=== PATIENT | male | born 1965 | race Caucasian/White ===

== ENCOUNTER 2017-02-06 09:52 | Emergency (ER) | payer MEDICARE, OTHER ==
[2017-02-06 09:57] VITALS: RESP 16
--- NOTE | 2017-02-06 10:17 | ED ---
General Adult HPI - General Chief complaint: Extremity Injury, Lower Stated complaint: Fall Time Seen by Provider: 02/06/17 10:05 Source: patient, RN notes reviewed Mode of arrival: wheelchair Limitations: no limitations - History of Present Illness Initial comments: Patient is a 51-year-old male who presents emergency room today with chief complaint of increased pain to the right knee after an injury that occurred just prior to arrival. He does admit that he was standing on a chair and putting a light bulb or malaise gave out and he fell down onto the left knee. Patient denies any head injury or loss conscious. He does admit to pain locally to the left knee is worse with any flexion or extension. Denies any other complaints or symptoms at this time. - Related Data Home Medications Medication Instructions Recorded Confirmed ALPRAZolam [Xanax] 0.5 mg PO BID PRN 01/11/14 02/06/17 Divalproex ER [Depakote ER] 500 mg PO HS 01/11/14 02/06/17 FLUoxetine HCL [PROzac] 60 mg PO QAM 01/11/14 02/06/17 risperiDONE [RisperDAL] 1 mg PO QAM 01/11/14 02/06/17 risperiDONE [RisperDAL] 2 mg PO HS 01/22/15 02/06/17 lamoTRIgine [LaMICtal] 200 mg PO HS 07/08/16 02/06/17 [place] Carbonate 150 mg PO DAILY 02/06/17 02/06/17 Previous Rx's Medication Instructions Recorded Ibuprofen [Motrin] 800 mg PO Q8HR #30 tab 02/06/17 Allergies Allergy/AdvReac Type Severity Reaction Status Date / Time No Known Allergies Allergy Verified 02/06/17 10:20 Review of Systems ROS Statement: Those systems with pertinent positive or pertinent negative responses have been documented in the HPI. ROS Other: All systems not noted in ROS Statement are negative. Past Medical History Past Medical History: COPD, Diabetes Mellitus, Osteoarthritis (OA), Prostate Disorder, Skin Disorder Additional Past Medical History / Comment(s): CLOSED HEAD INJURY 1994, AUTO TRAUMA.ASPIRATION PNEUMONIA (PAST). PSORIASIS, BPH., uses a cane, Degenerative disk disease, IBS, stress related boils History of Any Multi-Drug Resistant Organisms: None Reported Past Surgical History: Joint Replacement, Orthopedic Surgery Additional Past Surgical History / Comment(s): left knee arthroscopy, 05-08-15 total lt knee arthroplasty Past Anesthesia/Blood Transfusion Reactions: Postoperative Nausea & Vomiting ( PONV) Additional Past Anesthesia/Blood Transfusion Reaction / Comment(s): SEVERE PONV , adopted-family hx unknown Past Psychological History: Anxiety, Bipolar, Depression, PTSD Smoking Status: Current every day smoker Past Alcohol Use History: None Reported Past Drug Use History: None Reported, Marijuana - Past Family History Mother Family Medical History: Unable to Obtain Additional Family Medical History / Comment(s): very limited family hx-abdopted Sister(s) Family Medical History: Cancer General Exam - General Exam Comments Initial Comments: General: The patient is awake and alert, in no distress, and does not appear acutely ill. Neck: The neck is supple, there is no tenderness or JVD. Cardiovascular: There is a regular rate and rhythm. No murmur, rub or gallop is appreciated. Respiratory: Lungs are clear to auscultation, respirations are non-labored, breath sounds are equal. No wheezes, stridor, rales, or rhonchi. Musculoskeletal: Normal appearance of the left knee no obvious deformity. Does show limited range of motion with flexion due to pain. Locally tender over the anterior aspects. Patient's intact with pulses equal bilaterally 2+. Neurological: A&O x 3. CN II-XII intact, There are no obvious motor or sensory deficits. Coordination appears grossly intact. Speech is normal. Skin: Skin is warm and dry and no rashes or lesions are noted. Psychiatric: Normal mood and affect. Limitations: no limitations Course Vital Signs 02/06/17 09:53 Temperature 97.5 F L Pulse Rate 80 Respiratory 16 Rate Blood Pressure 111/58 O2 Sat by Pulse 99 Oximetry Medical Decision Making - Medical Decision Making She was reviewed and are negative for any acute fracture dislocation. Results were discussed with the patient. Patient denies use anti-inflammatories for pain at this time. Otherwise follow-up his orthopedic doctor symptoms persist or return to emergency room for any other concerns. Disposition Clinical Impression: Knee contusion Disposition: HOME SELF-CARE Condition: Good Instructions: Contusion in Adults (ED) Additional Instructions: Please continue to ice elevate the affected area. Please use ibuprofen for pain. Please return to emergency room symptoms increase worsen. Please follow- up with orthopedic doctor if symptoms are not improving. Prescriptions: Ibuprofen [Motrin] 800 mg PO Q8HR #30 tab Referrals: Jaquan Kent DO [Primary Care Provider] - 1-2 days Erik Quispe DO [Doctor of Osteopathic Medicine] - 1-2 days Time of Disposition: 10:58
--- NOTE | 2017-02-06 10:43 | XR ---
EXAMINATION TYPE: XR knee complete LT DATE OF EXAM: 02/06/2017 COMPARISON: NONE HISTORY: Pain TECHNIQUE: Four views are submitted. FINDINGS: Joint spaces are preserved. Osseous structures are intact. No acute fracture seen. Postsurgical ramo nges are noted. Hypertrophic change of the patella. Soft tissue ossification is noted. IMPRESSION: 1. No acute fracture or dislocation.
[2017-02-06] MEDS ORDERED: KETOROLAC 60 MG/2 ML VIAL IM STA (10:53)
[2017-02-06 11:10] VITALS: BP 119/55; PULSE 75; TEMP 97.2
== END 2017-02-06 11:08 | disposition home or self-care (01) ==
LOC: EC 09:52
DX: S80.01XA Contusion of right knee, initial encounter (principal); F31.9 Bipolar disorder, unspecified; F41.9 Anxiety disorder, unspecified; F17.200 Nicotine dependence, unspecified, uncomplicated; Z79.899 Other long term (current) drug therapy; W07.XXXA Fall from chair, initial encounter; Y93.89 Activity, other specified
CPT/HCPCS: 73562; 99283; 96372; J1885

== ENCOUNTER 2019-07-08 09:42 | Emergency (ER) | payer MEDICARE, OTHER ==
[2019-07-08] MEDS ORDERED: DIAZEPAM 5 MG/ML 2 ML INJ IM STA (10:24)
[2019-07-08] MEDS ORDERED: LIDOCAINE 5% PATCH TOPICAL STA (10:24)
[2019-07-08] MEDS ORDERED: KETOROLAC 30 MG/ML 1 ML VIAL IM STA (10:24)
[2019-07-08] MEDS ORDERED: CYCLOBENZAPRINE 10MG STARTER 3 TAB BTL PO STA (11:42)
[2019-07-08] MEDS ORDERED: ACET/COD 300 MG/30 MG STARTER PACK 6 TAB BTL PO STA (11:42)
--- NOTE | 2019-07-08 11:44 | ED ---
Back Pain HPI - General Chief Complaint: Back Pain/Injury Stated Complaint: back pain Time Seen by Provider: 07/08/19 10:04 Source: patient, family Limitations: no limitations - History of Present Illness Initial Comments: Patient is a 54-year-old female with history of herniated disc is benign to emergency Department with a chief complaint of back pain. Patient reports he has been having recurrent symptoms with occasional flareups due to his herniated disc. Patient reports most recent episode has been ongoing for about 4 days and yesterday was the most severe. Patient reports the pain is located on the right paraspinal region on the right side and radiates from the [place] distally along the posterior aspect of the right thigh to the popliteal region. Patient report s the pain is alleviated with rest and exacerbated with any movement. Patient denies saddle anesthesia, urinary or bowel incontinence. Patient reports he is scheduled to see an orthopedic surgeon but has never followed through for long period of time. Patient reports he does smoke marijuana to alleviate the symptoms. - Related Data Home Medications Medication Instructions Recorded Confirmed ALPRAZolam [Xanax] 0.5 mg PO BID PRN 01/11/14 02/06/17 Divalproex ER [Depakote ER] 500 mg PO HS 01/11/14 02/06/17 FLUoxetine HCL [PROzac] 60 mg PO QAM 01/11/14 02/06/17 risperiDONE [RisperDAL] 1 mg PO QAM 01/11/14 02/06/17 risperiDONE [RisperDAL] 2 mg PO HS 01/22/15 02/06/17 lamoTRIgine [LaMICtal] 200 mg PO HS 07/08/16 02/06/17 [place] Carbonate 150 mg PO DAILY 02/06/17 02/06/17 Previous Rx's Medication Instructions Recorded Ibuprofen [Motrin] 800 mg PO Q8HR #30 tab 02/06/17 Cyclobenzaprine [Flexeril] 10 mg PO TID PRN #15 tab 07/08/19 Lidocaine [Lidoderm 5% Patch] 1 patch TRANSDERM DAILY #5 patch 07/08/19 Allergies Allergy/AdvReac Type Severity Reaction Status Date / Time No Known Allergies Allergy Verified 07/08/19 09:56 Review of Systems ROS Statement: Those systems with pertinent positive or pertinent negative responses have been documented in the HPI. ROS Other: All systems not noted in ROS Statement are negative. Past Medical History Past Medical History: COPD, Diabetes Mellitus, Osteoarthritis (OA), Prostate Disorder, Skin Disorder Additional Past Medical History / Comment(s): CLOSED HEAD INJURY 1994, AUTO TRAUMA.ASPIRATION PNEUMONIA (PAST). PSORIASIS, BPH., uses a cane, Degenerative disk disease, IBS, stress related boils History of Any Multi-Drug Resistant Organisms: None Reported Past Surgical History: Joint Replacement, Orthopedic Surgery Additional Past Surgical History / Comment(s): left knee arthroscopy, 05-08-15 total lt knee arthroplasty Past Anesthesia/Blood Transfusion Reactions: Postoperative Nausea & Vomiting (PONV) Additional Past Anesthesia/Blood Transfusion Reaction / Comment(s): SEVERE PONV, adopted-family hx unknown Past Psychological History: Anxiety, Bipolar, Depression, PTSD Smoking Status: Current every day smoker Past Alcohol Use History: None Reported Past Drug Use History: Marijuana - Past Family History Mother Family Medical History: Unable to Obtain Additional Family Medical History / Comment(s): very limited family hx-abdopted Sister(s) Family Medical History: Cancer General Exam Limitations: no limitations General appearance: alert, in no apparent distress, in distress Head exam: Present: atraumatic, normocephalic, normal inspection Eye exam: Present: normal appearance Pupils: Present: normal accommodation ENT exam: Present: normal exam, normal oropharynx, mucous membranes moist, TM's normal bilaterally, normal external ear exam Neck exam: Present: normal inspection, full ROM Respiratory exam: Present: normal lung sounds bilaterally Cardiovascular Exam: Present: regular rate, normal rhythm, normal heart sounds Extremities exam: Present: normal inspection, full ROM, normal capillary refill Back exam: Present: normal inspection, full ROM, tenderness, paraspinal tenderness (Right paraspinal tenderness in the lumbosacral region), other (Positive leg raise test right leg.). Absent: CVA tenderness (R), CVA tenderness (L), muscle spasm, vertebral tenderness, rash noted Neurological exam: Present: alert, oriented X3 Psychiatric exam: Present: normal affect, normal mood Skin exam: Present: warm, dry, intact, normal color Course Vital Signs 07/08/19 07/08/19 09:56 11:55 Temperature 97.7 F 98 F Pulse Rate 77 70 Respiratory 18 20 Rate Blood Pressure 151/104 125/77 O2 Sat by Pulse 99 97 Oximetry Medical Decision Making - Medical Decision Making Patient is a 54-year-old male with history of a herniated disc is presenting to the emergency department with a chief complaint of back pain. Physical examination is indicative of sciatica type symptoms along with mechanical low back pain. No cauda equina signs. No red flags. Patient was given a Lidoderm patch, Flexeril and Ativan. Reevaluation patient reports his symptoms have greatly improved. Patient is not able to ambulate. Patient will be discharged with Flexeril and he was advised about the possible side effects of the medication. Patient advised to follow-up with clinical application specialist. Patient also prescribed a lidoderm patch. Strict return parameters were thoroughly discussed with patient was understanding and agreeable. Case discussed physician. Disposition Clinical Impression: Lumbar radiculopathy, chronic, Sciatica, right side Disposition: HOME SELF-CARE Condition: Stable Instructions (If sedation given, give patient instructions): Acute Low Back Pain (ED) Additional Instructions: Please take prescribed medication as directed. Please follow with clinical application specialist. Please return to emergency department if symptoms worsen. Prescriptions: Cyclobenzaprine [Flexeril] 10 mg PO TID PRN #15 tab PRN Reason: Muscle Spasm Lidocaine [Lidoderm 5% Patch] 1 patch TRANSDERM DAILY #5 patch Is patient prescribed a controlled substance at d/c from ED?: No Referrals: Antolin Castro [Primary Care Provider] - 1-2 days Milton Hinton DO [Medical Doctor] - 1-2 days Time of Disposition: 11:44
[2019-07-08 12:02] VITALS: BP 125/77; PULSE 70; RESP 20; TEMP 98
== END 2019-07-08 11:57 | disposition home or self-care (01) ==
LOC: EC 09:42
DX: M54.16 Radiculopathy, lumbar region (principal); M19.90 Unspecified osteoarthritis, unspecified site; F31.9 Bipolar disorder, unspecified; F41.9 Anxiety disorder, unspecified; F17.200 Nicotine dependence, unspecified, uncomplicated; Z79.899 Other long term (current) drug therapy; Z96.652 Presence of left artificial knee joint
CPT/HCPCS: 99283; 96372 ×2; J3360; J1885

== ENCOUNTER → 2019-10-06 | Outpatient (CLI) | payer MEDICARE, OTHER ==
--- NOTE | 2019-10-07 11:11 | ECHOF ---
Referral Reason:R01.1 cardiac murmur MEASUREMENTS -------- HEIGHT: 175.3 cm WEIGHT: 85.7 kg BP: RVIDd: 2.8 cm (< 3.3) IVSd: 1.5 cm (0.6 - 1.1) LVIDd: 3.9 cm (3.9 - 5.3) LVPWd: 1.6 cm (0.6 - 1.1) IVSs: 2.0 cm LVIDs: 2.8 cm LVPWs: 2.3 cm LAESV Index (A-L): 24.02 ml/m Ao Diam: 2.1 cm (2.0 - 3.7) AV Cusp: 0.9 cm (1.5 - 2.6) MV EXCURSION: 19.027 mm (> 18.000) MV EF SLOPE: 80 mm/s (70 - 150) EPSS: 0.4 cm MV E Deo: 0.84 m/s MV DecT: 185 ms MV A Deo: 0.74 m/s MV E/A Ratio: 1.13 AV maxP.97 mmHg AV meanP.54 mmHg RAP: 5.00 mmHg RVSP: 25.91 mmHg FINDINGS -------- Sinus rhythm. This was a technically adequate study. The left ventricular size is normal. There is moderate concentric left ventricular hypertrophy. O verall left ventricular systolic function is normal with, an EF between 55 - 60 %. The diastolic fi lling pattern is normal for the age of the patient 8.97. The right ventricle is normal in size. Normal LA size by volume 22+/-6 ml/m2. The right atrial size is normal. Interatrial and interventricular septum intact. There is moderate aortic stenosis present. Peak/mean gradient across the Aortic Valve is 36.97mmHg / 23.54mmHg. AOV is possible Bicuspid. There is trace mitral regurgitation. Mild tricuspid regurgitation present. There is no evidence of pulmonary hypertension. The right v entricular systolic pressure, as measured by Doppler, is 25.91mmHg. Trace/mild (physiologic) pulmonic regurgitation. The aortic root size is normal. The inferior vena cava is mildly dilated. There is no pericardial effusion. CONCLUSIONS -------- 1. Sinus rhythm. 2. This was a technically adequate study. 3. The left ventricular size is normal. 4. There is moderate concentric left ventricular hypertrophy. 5. Overall left ventricular systolic function is normal with, an EF between 55 - 60 %. 6. The diastolic filling pattern is normal for the age of the patient 8.97 7. The right ventricle is normal in size. 8. Normal LA size by volume 22+/-6 ml/m2. 9. The right atrial size is normal. 10. Interatrial and interventricular septum intact. 11. There is moderate aortic stenosis present. 12. Peak/mean gradient across the Aortic Valve is 36.97mmHg / 23.54mmHg. 13. AOV is possible Bicuspid. 14. There is trace mitral regurgitation. 15. Mild tricuspid regurgitation present. 16. There is no evidence of pulmonary hypertension. 17. The right ventricular systolic pressure, as measured by Doppler, is 25.91mmHg. 18. Trace/mild (physiologic) pulmonic regurgitation. 19. The aortic root size is normal. 20. The inferior vena cava is mildly dilated. 21. There is no pericardial effusion. EARLY BREASTFEEDING CARE SPECIALIST: Tracy Serrato RDCS
== END | disposition home or self-care (01) ==
LOC: RADECHMAIN 11:14
PROVIDERS: ATTEND Family Medicine
DX: I07.1 Rheumatic tricuspid insufficiency (principal); I35.0 Nonrheumatic aortic (valve) stenosis; I37.1 Nonrheumatic pulmonary valve insufficiency
CPT/HCPCS: 93306

== ENCOUNTER 2019-10-20 16:07 | Emergency (ER) | payer MEDICARE ==
[2019-10-20 16:10] VITALS: TEMP 97.6
[2019-10-20 16:27] VITALS: RESP 18
--- NOTE | 2019-10-20 16:33 | ED ---
General Adult HPI - General Chief complaint: Chest Pain Stated complaint: Chest pain Time Seen by Provider: 10/20/19 16:12 Source: patient Mode of arrival: wheelchair Limitations: no limitations - History of Present Illness Initial comments: Dictation was produced using [employer] dictation software. please excuse any grammatical, word or spelling errors. Chief Complaint: 54-year-old male presents with chest pain History of Present Illness: 54-year-old male presents today with chest pain. Patient states the pain was located to his left anterior chest. He describes it as a tightness and squeezing sensation to his left chest. He stated radiated to his left shoulder. Patient denies any history of coronary artery disease. Does have history of diabetes. No associated diaphoresis or nausea. Patient denies any symptoms at this time. He states his pain lasted for only a couple minutes. States he was at rest when this occurred. The ROS documented in this emergency department record has been reviewed and confirmed by me. Those systems with pertinent positive or negative responses have been documented in the HPI. All other systems are other negative and/or noncontributory. PHYSICAL EXAM: General Impression: Alert and oriented x3, not in acute distress HEENT: Normocephalic atraumatic, extra-ocular movements intact, pupils equal and reactive to light bilaterally, mucous membranes moist. Cardiovascular: Heart regular rate and rhythm, S1&S2 audible, no murmurs, rubs or gallops Chest: Lungs clear to auscultation bilaterally, no rhonchi, no wheeze, no rales Abdomen: Bowel sounds present, abdomen soft, non-tender, non-distended, no organomegaly Musculoskeletal: Pulses present and equal in all extremities, no peripheral edema Motor: no focal deficits noted Neurological: CN II-XII grossly intact, no focal motor or sensory deficits noted Skin: Intact with no visualized rashes Psych: Normal affect and mood ED course: 54 y Old male presents with atypical chest pain with typical features. His upon arrival are within acceptable limits. Laboratory evaluation obtained. CBC, coag panel, metabolic panel is unrema rkable. Slight elevation in potassium. Chest x-ray is not acute. Denies her discussed with patient. It was recommended to him that be admitted for serial troponins. Patient does not want stay he wants to leave to attend to other matters. He lives nearby and can come back. He understands the risks of being discharged with incomplete workup. He is a could have a heart attack and expressed significant morbidity and even mortality. Patient's want to sign an AGAINST MEDICAL ADVICE. Risks, Benefits, and Treatment alternatives were discussed in detail with the patient. The patient is alert and oriented X 3 and has the capacity to make an informed decision. The risks of increased morbidity including the possibly of were explained to and understood by the patient who is choosing to leave against medical advice. The patient is encouraged to return any time should they want further treatment and diagnostic investigation. EKG interpretation: Ventricular rate 79, normal sinus rhythm, ME interval 166, QRS 96, QTC 421. No ME prolongation, no QTC prolongation, no ST or T-wave ramo nges noted. EKG compared to 07/08/2016 showing no changes. Overall, this EKG is unremarkable - Related Data Home Medications Medication Instructions Recorded Confirmed ALPRAZolam [Xanax] 0.5 mg PO BID PRN 01/11/14 02/06/17 Divalproex ER [Depakote ER] 500 mg PO HS 01/11/14 02/06/17 FLUoxetine HCL [PROzac] 60 mg PO QAM 01/11/14 02/06/17 risperiDONE [RisperDAL] 1 mg PO QAM 01/11/14 02/06/17 risperiDONE [RisperDAL] 2 mg PO HS 01/22/15 02/06/17 lamoTRIgine [LaMICtal] 200 mg PO HS 07/08/16 02/06/17 [place] Carbonate 150 mg PO DAILY 02/06/17 02/06/17 Previous Rx's Medication Instructions Recorded Ibuprofen [Motrin] 800 mg PO Q8HR #30 tab 02/06/17 Cyclobenzaprine [Flexeril] 10 mg PO TID PRN #15 tab 07/08/19 Lidocaine [Lidoderm 5% Patch] 1 patch TRANSDERM DAILY #5 patch 07/08/19 Allergies Allergy/AdvReac Type Severity Reaction Status Date / Time No Known Allergies Allergy Verified 10/20/19 16:10 Review of Systems ROS Statement: Those systems with pertinent positive or pertinent negative responses have been documented in the HPI. ROS Other: All systems not noted in ROS Statement are negative. Past Medical History Past Medical History: COPD, Diabetes Mellitus, Osteoarthritis (OA), Prostate Disorder, Skin Disorder Additional Past Medical History / Comment(s): CLOSED HEAD INJURY 1994, AUTO TRAUMA.ASPIRATION PNEUMONIA (PAST). PSORIASIS, BPH., uses a cane, Degenerative disk disease, IBS, stress related boils History of Any Multi-Drug Resistant Organisms: None Reported Past Surgical History: Joint Replacement, Orthopedic Surgery Additional Past Surgical History / Comment(s): left knee arthroscopy, 05-08-15 total lt knee arthroplasty Past Anesthesia/Blood Transfusion Reactions: Postoperative Nausea & Vomiting (P ONV) Additional Past Anesthesia/Blood Transfusion Reaction / Comment(s): SEVERE PONV, adopted-family hx unknown Past Psychological History: Anxiety, Bipolar, Depression, PTSD Smoking Status: Current every day smoker Past Alcohol Use History: None Reported Past Drug Use History: Marijuana - Past Family History Mother Family Medical History: Unable to Obtain Additional Family Medical History / Comment(s): very limited family hx-abdopted Sister(s) Family Medical History: Cancer General Exam Limitations: no limitations Course Vital Signs 10/20/19 10/20/19 10/20/19 16:07 16:27 17:19 Temperature 97.6 F Pulse Rate 85 84 91 Respiratory 16 18 18 Rate Blood Pressure 131/84 125/82 115/86 O2 Sat by Pulse 97 96 96 Oximetry Medical Decision Making - Lab Data Result diagrams: 10/20/19 16:24 10/20/19 16:24 Lab Results 10/20/19 10/20/19 10/20/19 Range/Units 16:24 16:24 16:24 WBC 8.6 (3.8-10.6) k/uL RBC 4.97 (4.30-5.90) m/uL Hgb 14.8 (13.0-17.5) gm/dL Hct 44.0 (39.0-53.0) % MCV 88.6 (80.0-100.0) fL MCH 29.7 (25.0-35.0) pg MCHC 33.6 (31.0-37.0) g/dL RDW 12.4 (11.5-15.5) % Plt Count 192 (150-450) k/uL Neutrophils % 76 % Lymphocytes % 16 % Monocytes % 3 % Eosinophils % 3 % Basophils % 0 % Neutrophils # 6.5 (1.3-7.7) k/uL Lymphocytes # 1.4 (1.0-4.8) k/uL Monocytes # 0.3 (0-1.0) k/uL Eosinophils # 0.2 (0-0.7) k/uL Basophils # 0.0 (0-0.2) k/uL PT 10.3 (9.0-12.0) sec INR 1.0 (<1.2) APTT 25.8 (22.0-30.0) sec Sodium 138 (137-145) mmol/L Potassium 5.2 H (3.5-5.1) mmol/L Chloride 104 (98-107) mmol/L Carbon Dioxide 23 (22-30) mmol/L Anion Gap 11 mmol/L BUN 16 (9-20) mg/dL Creatinine 0.76 (0.66-1.25) mg/dL Est GFR (CKD-EPI)AfAm >90 (>60 ml/min/1.73 sqM) Est GFR (CKD-EPI)NonAf >90 (>60 ml/min/1.73 sqM) Glucose 123 H (74-99) mg/dL Calcium 9.5 (8.4-10.2) mg/dL Magnesium 1.7 (1.6-2.3) mg/dL Total Bilirubin 0.4 (0.2-1.3) mg/dL AST 43 (17-59) U/L ALT 50 H (4-49) U/L Alkaline Phosphatase 65 (38-126) U/L Troponin I (0.000-0.034) ng/mL Total Protein 7.5 (6.3-8.2) g/dL Albumin 4.6 (3.5-5.0) g/dL 10/20/19 Range/Units 16:24 WBC (3.8-10.6) k/uL RBC (4.30-5.90) m/uL Hgb (13.0-17.5) gm/dL Hct (39.0-53.0) % MCV (80.0-100.0) fL MCH (25.0-35.0) pg MCHC (31.0-37.0) g/dL RDW (11.5-15.5) % Plt Count (150-450) k/uL Neutrophils % % Lymphocytes % % Monocytes % % Eosinophils % % Basophils % % Neutrophils # (1.3-7.7) k/uL Lymphocytes # (1.0-4.8) k/uL Monocytes # (0-1.0) k/uL Eosinophils # (0-0.7) k/uL Basophils # (0-0.2) k/uL PT (9.0-12.0) sec INR (<1.2) APTT (22.0-30.0) sec Sodium (137-145) mmol/L Potassium (3.5-5.1) mmol/L Chloride (98-107) mmol/L Carbon Dioxide (22-30) mmol/L Anion Gap mmol/L BUN (9-20) mg/dL Creatinine (0.66-1.25) mg/dL Est GFR (CKD-EPI)AfAm (>60 ml/min/1.73 sqM) Est GFR (CKD-EPI)NonAf (>60 ml/min/1.73 sqM) Glucose (74-99) mg/dL Calcium (8.4-10.2) mg/dL Magnesium (1.6-2.3) mg/dL Total Bilirubin (0.2-1.3) mg/dL AST (17-59) U/L ALT (4-49) U/L Alkaline Phosphatase (38-126) U/L Troponin I <0.012 (0.000-0.034) ng/mL Total Protein (6.3-8.2) g/dL Albumin (3.5-5.0) g/dL Disposition Clinical Impression: Chest pain Disposition: Left Against Medical Advice Condition: Fair Instructions (If sedation given, give patient instructions): Chest Pain (ED) Is patient prescribed a controlled substance at d/c from ED?: No Referrals: Antolin Castro [Primary Care Provider] - 1-2 days Time of Disposition: 17:27
--- NOTE | 2019-10-20 16:41 | XR ---
EXAMINATION TYPE: XR chest 2V DATE OF EXAM: 10/20/2019 COMPARISON: Chest x-ray July 08, 2016. HISTORY: Chest pain. TECHNIQUE: Frontal and lateral views of the chest are obtained. FINDINGS: Slightly diminished inspiration on current study. Overlying EKG leads are now present. Ther e is no focal air space opacity, pleural effusion, or pneumothorax seen. The cardiac silhouette size is upper limits of normal. The osseous structures are intact. IMPRESSION: Diminished inspiration without suspicious acute process.
[2019-10-20 16:42] LABS: Basophils % (A) 0 %; Eosinophils # (A) 0.2 k/uL (0-0.7); Eosinophils % (A) 3 %; HGB 14.8 gm/dL (13.0-17.5); Lymphocytes # (A) 1.4 k/uL (1.0-4.8); Lymphocytes % (A) 16 %; MCH 29.7 pg (25.0-35.0); MCHC 33.6 g/dL (31.0-37.0); MCV 88.6 fL (80.0-100.0); Mean Platelet Volume 8.7; Monocytes # (A) 0.3 k/uL (0-1.0); Monocytes % (A) 3 %; Neutrophils # (A) 6.5 k/uL (1.3-7.7); Neutrophils % (A) 76 %; Platelet Count 192 k/uL (150-450); RBC 4.97 m/uL (4.30-5.90); RDW 12.4 % (11.5-15.5); WBC 8.6 k/uL (3.8-10.6)
[2019-10-20 16:44] LABS: ALT 50 U/L (4-49); AST 43 U/L (17-59); African American GFR (CKD) >90 (>60 ml/min/1.73 sqM); Albumin 4.6 g/dL (3.5-5.0); Alkaline Phosphatase 65 U/L (38-126); Anion Gap 11 mmol/L; Blood Urea Nitrogen 16 mg/dL (9-20); Calcium 9.5 mg/dL (8.4-10.2); Carbon Dioxide 23 mmol/L (22-30); Chloride 104 mmol/L (98-107); Glucose 123 mg/dL (74-99); Magnesium 1.7 mg/dL (1.6-2.3); Non-African American GFR(CKD) >90 (>60 ml/min/1.73 sqM); Partial Thromboplastin Time 25.8 sec (22.0-30.0); Potassium 5.2 mmol/L (3.5-5.1); Prothrombin Time 10.3 sec (9.0-12.0); Sodium 138 mmol/L (137-145); Total Bilirubin 0.4 mg/dL (0.2-1.3); Total Protein 7.5 g/dL (6.3-8.2)
[2019-10-20] MEDS ORDERED: NITROGLYCERIN SL TABS 0.4 MG TAB SUBLINGUAL PRN (17:19)
[2019-10-20] MEDS ORDERED: ASPIRIN 81 MG PO STA (17:19)
[2019-10-20 17:20] VITALS: BP 115/86; PULSE 91
[2019-10-21] MEDS ORDERED: ASPIRIN 325 MG TAB PO SCH (09:00)
== END 2019-10-20 17:29 | disposition left against medical advice (07) ==
LOC: EC 16:07
DX: R07.89 Other chest pain (principal); E87.5 Hyperkalemia; E11.9 Type 2 diabetes mellitus without complications; F41.9 Anxiety disorder, unspecified; F31.9 Bipolar disorder, unspecified; M19.90 Unspecified osteoarthritis, unspecified site; F17.200 Nicotine dependence, unspecified, uncomplicated; Z79.899 Other long term (current) drug therapy; Z96.652 Presence of left artificial knee joint
CPT/HCPCS: 36415; 71046; 80053; 83735; 84484; 85025; 85610; 85730; 93005; 99285

== ENCOUNTER 2019-10-24 10:15 | Observation (INO) | payer MEDICARE ==
[2019-10-24] MEDS ORDERED: ASPIRIN 81 MG PO STA (10:49)
[2019-10-24] MEDS ORDERED: NITROGLYCERIN OINT 1 INCH/GM PACKET TOPICAL STA (10:49)
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
--- NOTE | 2019-10-24 11:04 | XR ---
EXAMINATION TYPE: XR chest 2V DATE OF EXAM: 10/24/2019 COMPARISON: 10/20/2019 HISTORY: Chest pain for 3 to 4 days. TECHNIQUE: Frontal and lateral views of the chest are obtained. FINDINGS: Interstitial prominence appears chronic. There is no focal air space opacity, pleural effus ion, or pneumothorax seen. The cardiac silhouette size is within normal limits. The osseous struct ures are intact. Mild multilevel degenerative change of the spine. IMPRESSION: Diffuse interstitial prominence does appear chronic. Chronic interstitial pulmonary lenora a versus interstitial lung disease are considerations. No focal consolidation.
[2019-10-24 11:12] LABS: ALT 50 U/L (4-49); AST 35 U/L (17-59); African American GFR (CKD) >90 (>60 ml/min/1.73 sqM); Albumin 4.5 g/dL (3.5-5.0); Alkaline Phosphatase 80 U/L (38-126); Anion Gap 13 mmol/L; Blood Urea Nitrogen 16 mg/dL (9-20); Calcium 9.9 mg/dL (8.4-10.2); Carbon Dioxide 25 mmol/L (22-30); Chloride 101 mmol/L (98-107); Glucose 179 mg/dL (74-99); Magnesium 1.6 mg/dL (1.6-2.3); Non-African American GFR(CKD) >90 (>60 ml/min/1.73 sqM); Potassium 4.5 mmol/L (3.5-5.1); Sodium 139 mmol/L (137-145); Total Bilirubin 0.2 mg/dL (0.2-1.3); Total Protein 7.2 g/dL (6.3-8.2)
[2019-10-24 11:16] LABS: Basophils % (A) 0 %; Eosinophils # (A) 0.1 k/uL (0-0.7); Eosinophils % (A) 1 %; HCT 43.4 % (39.0-53.0); HGB 14.6 gm/dL (13.0-17.5); INR 0.9 (<1.2); Lymphocytes # (A) 1.3 k/uL (1.0-4.8); Lymphocytes % (A) 16 %; MCH 29.8 pg (25.0-35.0); MCHC 33.7 g/dL (31.0-37.0); MCV 88.4 fL (80.0-100.0); Mean Platelet Volume 8.9; Monocytes # (A) 0.3 k/uL (0-1.0); Monocytes % (A) 4 %; Neutrophils # (A) 6.5 k/uL (1.3-7.7); Neutrophils % (A) 78 %; Partial Thromboplastin Time 25.3 sec (22.0-30.0); Platelet Count 164 k/uL (150-450); Prothrombin Time 9.9 sec (9.0-12.0); RBC 4.91 m/uL (4.30-5.90); RDW 12.3 % (11.5-15.5); WBC 8.3 k/uL (3.8-10.6)
[2019-10-24] MEDS ORDERED: NITROGLYCERIN SL TABS 0.4 MG TAB SUBLINGUAL PRN (12:28)
[2019-10-24] MEDS ORDERED: ALPRAZolam 0.5 MG TAB PO PRN (14:53)
[2019-10-24] MEDS ORDERED: TEMAZEPAM 15 MG CAP PO PRN (14:53)
[2019-10-24] MEDS ORDERED: IPRATROPIUM-ALBUTEROL 3 ML NEB INHALATION PRN (16:07)
[2019-10-24] MEDS ORDERED: ACETAMINOPHEN TAB 325 MG TAB PO PRN (16:08)
[2019-10-24] MEDS ORDERED: NALOXONE 0.4 MG/ML 1 ML VIAL IV PRN (16:08)
[2019-10-24] MEDS ORDERED: HYDROcodone/APAP 5-325MG 1 EACH TAB PO PRN (16:08)
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
[2019-10-24] MEDS: NICOTINE 14MG/24HR PATCH TRANSDERM SCH (16:33)
[2019-10-24 16:41] LABS: Glucose,Whole Blood 115 mg/dL (75-99)
[2019-10-24] MEDS: INSULIN ASPART (NovoLOG) 100 UNIT/ML VIAL SQ SCH ×2 (17:34→20:37)
[2019-10-24] MEDS: lamoTRIgine 100 MG TAB PO SCH ×2 (18:46→20:40)
[2019-10-24] MEDS: NITROGLYCERIN OINT 1 INCH/GM PACKET TOPICAL SCH ×2 (18:46→23:05)
[2019-10-24 20:18] LABS: Glucose,Whole Blood 147 mg/dL (75-99)
[2019-10-24] MEDS: HEPARIN SODIUM,PORCINE 5,000 UNIT/ML 1 ML VIAL SQ SCH (20:40)
[2019-10-24] MEDS ORDERED: ATORVASTATIN 20 MG TAB PO SCH (21:00)
[2019-10-25] MEDS: NITROGLYCERIN OINT 1 INCH/GM PACKET TOPICAL SCH (04:51)
[2019-10-25 06:16] LABS: Cholesterol 142 mg/dL (<200); HDL Cholesterol 34 mg/dL (40-60); LDL Cholesterol,Calculated 65 mg/dL (0-99); Triglycerides 214 mg/dL (<150)
[2019-10-25 06:40] LABS: Glucose,Whole Blood 120 mg/dL (75-99)
[2019-10-25] MEDS: INSULIN ASPART (NovoLOG) 100 UNIT/ML VIAL SQ SCH ×2 (07:30→15:26)
[2019-10-25 07:50] VITALS: RESP 18
[2019-10-25] MEDS ORDERED: LISINOPRIL 2.5 MG TAB PO SCH (09:00)
[2019-10-25] MEDS ORDERED: FLUoxetine HCL 20 MG CAP PO SCH (09:00)
[2019-10-25] MEDS ORDERED: ARIPiprazole 15 MG TAB PO SCH (09:00)
[2019-10-25] MEDS ORDERED: TAMSULOSIN 0.4 MG CAP.ER.24H PO SCH (09:00)
[2019-10-25] MEDS ORDERED: ASPIRIN 325 MG TAB PO SCH (09:00)
[2019-10-25] MEDS ORDERED: AMINOPHYLLINE 500 MG/20 ML VIAL IV PRN ×2 (09:48→10:21)
[2019-10-25] MEDS ORDERED: CAFFEINE CITRATE 60 MG/3 ML VIAL IV PRN ×2 (09:48→10:21)
[2019-10-25] MEDS ORDERED: REGADENOSON 0.4 MG/5 ML SYRINGE IV ONE (10:21)
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
[2019-10-25] MEDS ORDERED: DIPYRIDAMOLE IV ONE (10:30)
[2019-10-25] MEDS ORDERED: SODIUM CHLORIDE 0.9% IV ONE (10:30)
--- NOTE | 2019-10-25 11:00 | ECHOF ---
Referral Reason:chest pain MEASUREMENTS -------- HEIGHT: 175.3 cm WEIGHT: 90.3 kg BP: 120/86 RVIDd: 3.5 cm (< 3.3) IVSd: 1.4 cm (0.6 - 1.1) LVIDd: 4.4 cm (3.9 - 5.3) LVPWd: 1.6 cm (0.6 - 1.1) IVSs: 1.8 cm LVIDs: 2.9 cm LVPWs: 2.0 cm LAESV Index (A-L): 26.21 ml/m Ao Diam: 2.9 cm (2.0 - 3.7) AV Cusp: 1.6 cm (1.5 - 2.6) MV EXCURSION: 21.910 mm (> 18.000) MV EF SLOPE: 95 mm/s (70 - 150) EPSS: 0.2 cm MV E Deo: 0.68 m/s MV DecT: 281 ms MV A Deo: 0.57 m/s MV E/A Ratio: 1.21 AV maxP.97 mmHg AV meanP.21 mmHg RAP: 5.00 mmHg RVSP: 30.50 mmHg FINDINGS -------- Sinus rhythm. This was a technically good study. The left ventricular size is normal. There is moderate concentric left ventricular hypertrophy. O verall left ventricular systolic function is normal with, an EF between 55 - 60 %. The diastolic fi lling pattern is normal for the age of the patient 8.67. The right ventricle is mildly enlarged. Normal LA size by volume 22+/-6 ml/m2. The right atrial size is normal. Interatrial and interventricular septum intact. There is no evidence of aortic regurgitation. There is moderate aortic stenosis present. Peak/raul n gradient across the Aortic Valve is 37.97mmHg / 21.21mmHg. Mild mitral annular calcification present. Mild mitral regurgitation is present. Mild tricuspid regurgitation present. There is borderline pulmonary artery hypertension. The righ t ventricular systolic pressure, as measured by Doppler, is 30.50mmHg. There is no pulmonic regurgitation present. The aortic root size is normal. The inferior vena cava is mildly dilated. There is no pericardial effusion. CONCLUSIONS -------- 1. Sinus rhythm. 2. This was a technically good study. 3. The left ventricular size is normal. 4. There is moderate concentric left ventricular hypertrophy. 5. Overall left ventricular systolic function is normal with, an EF between 55 - 60 %. 6. The diastolic filling pattern is normal for the age of the patient 8.67 7. The right ventricle is mildly enlarged. 8. Normal LA size by volume 22+/-6 ml/m2. 9. The right atrial size is normal. 10. Interatrial and interventricular septum intact. 11. There is no evidence of aortic regurgitation. 12. There is moderate aortic stenosis present. 13. Peak/mean gradient across the Aortic Valve is 37.97mmHg / 21.21mmHg. 14. Mild mitral annular calcification present. 15. Mild mitral regurgitation is present. 16. Mild tricuspid regurgitation present. 17. There is borderline pulmonary artery hypertension. 18. The right ventricular systolic pressure, as measured by Doppler, is 30.50mmHg. 19. There is no pulmonic regurgitation present. 20. The aortic root size is normal. 21. The inferior vena cava is mildly dilated. 22. There is no pericardial effusion. [employer]ION[facility] TEST TECHNICIAN: Tracy Serrato RDCS
--- NOTE | 2019-10-25 12:30 | P.DS ---
Providers Date of admission: 10/24/19 12:29 Expected date of discharge: 10/25/19 Attending physician: Kanu Godoy MD Consults: 10/24/19 12:29 Consult Physician Urgent Consulting Provider: Guy Boo Consult Reason/Comments: cp Do you want consulting provider notified?: Yes Primary care physician: [facility] Course: 54-year-old male with the [facility] diabetes mellitus bipolar disorder presented to the ED for chest pain. Patient initially reported chest pain that started on Thursday as he was sitting down around 3 PM. Patient reported the pain to be intermittent lasting for 1 hour. Pain reoccurred on Thursday when he was outside tending to his animals. The recurrence of pain prompted the patient to go to the ED at [facility]. At that time, troponin was less than 0.012 with EKG showing normal sinus rhythm. Patient left AMA at that time. Patient reports that his chest pain reoccurred this morning. His [id number] was an RN who urged patient to go back to the ED. Patient reports the pain to be left- sided and pressure-like in sensation. Pain occasionally radiates to the left shoulder. Pain is 5/10 in severity. Patient denies any headache, lower extremity edema, nausea or vomiting, fever or chills, cough, shortness of breath, palpitations, changes in urination or bowel habits. No changes in appetite or weight. Patient denies any dizziness, numbness/weakness/tingling of the extremities. In the ED, vital signs were stable. CBC was unremarkable. Coagulation panel was negative. CMP was negative except glucose 179 and ALT 50. Troponin was also 0.012, EKG showing normal sinus rhythm. BNP was 17, chest x- ray showing diffuse interstitial prominence. Patient is admitted for chest pain, rule out acute coronary syndrome with cardiology in consultation. Troponins were trended and were less than 0.0123 with EKG showing normal sinus rhythm. Cardiology was consulted and recommended echocardiogram which showed EF 55-60% and moderate concentric LVH along with aortic stenosis. Cardiology recommended stress testing as well. Patient was seen and examined prior to his stress test. No acute events overnight. Patient denies any chest pain, shortness of breath or palpitations. No nausea or vomiting. No fever or chills. General: [non toxic], [no distress], [appears at stated age] Derm: [warm], [dry] Head: [atraumatic], [normocephalic], [symmetric] Eyes: [EOMI], [no lid lag], [anicteric sclera] Mouth: [no lip lesion], [mucus membranes moist] Cardiovascular: [S1S2 reg], [systolic murmur], [positive DP pulse bilateral], Lungs: [CTA bilateral], [no rhonchi, no rales] , [no accessory muscle use] Abdominal: [soft], [ nontender to palpation], [no guarding], [no appreciable organomegaly] Ext: [no gross muscle atrophy], [no edema], [no contractures] Neuro: [no focal neuro deficits] Psych: [Alert], [oriented], [appropriate affect] Chest pain rule out acute coronary syndrome Diabetes mellitus with hyperglycemia Aortic stenosis moderate COPD Smoker Bipolar disorder Troponins are currently less than 0.012 3 with EKG showing normal sinus rhythm. ACS has been ruled out. Echocardiogram shows EF 55-60% with moderate concentric LVH along with moderate aortic stenosis. Patient will need USAMA in the outpatient setting under cardiology. Patient will be placed on telemetry. Cardiology has been consulted and stress test has been ordered. He'll be continued on aspirin and Lipitor. Patient be started on insulin sliding scale with regular Accu-Cheks and hypoglycemic precautions. Patient will be given DuoNeb for shortness of breath and wheezing. Nicotine patch has been ordered for history of smoking. His home medication of Abilify, Prozac, Lamictal will be resumed her bipolar depression. Plans are to discharge patient home today if his stress test is normal. Pertinent Studies: Chest x-ray, echocardiogram, stress test Patient Condition at Discharge: Stable Plan - Discharge Summary Discharge Rx Participant: No New Discharge Prescriptions: No Action FLUoxetine HCL [PROzac] 20 mg PO QAM ALPRAZolam [Xanax] 0.5 mg PO BID PRN PRN Reason: Anxiety lamoTRIgine [LaMICtal] 100 mg PO QID metFORMIN HCL [Glucophage] 1,000 mg PO BID Temazepam [Restoril] 15 mg PO HS PRN PRN Reason: Insomnia Tamsulosin [Flomax] 0.4 mg PO DAILY Lisinopril [Zestril] 2.5 mg PO DAILY Atorvastatin [Lipitor] 20 mg PO HS Albuterol Inhaler [Ventolin Hfa Inhaler] 1 - 2 puff INHALATION RT-Q6H PRN PRN Reason: Shortness Of Breath ARIPiprazole [Abilify] 30 mg PO DAILY Dulaglutide [Trulicity] 1.5 mg SQ TU Aspirin EC [Ecotrin Low Dose] 81 mg PO DAILY Discharge Medication List ALPRAZolam [Xanax] 0.5 mg PO BID PRN 01/11/14 [History] FLUoxetine HCL [PROzac] 20 mg PO QAM 01/11/14 [History] lamoTRIgine [LaMICtal] 100 mg PO QID 07/08/16 [History] ARIPiprazole [Abilify] 30 mg PO DAILY 10/24/19 [History] Albuterol Inhaler [Ventolin Hfa Inhaler] 1 - 2 puff INHALATION RT-Q6H PRN 10/24/19 [History] Aspirin EC [Ecotrin Low Dose] 81 mg PO DAILY 10/24/19 [History] Atorvastatin [Lipitor] 20 mg PO HS 10/24/19 [History] Dulaglutide [Trulicity] 1.5 mg SQ TU 10/24/19 [History] Lisinopril [Zestril] 2.5 mg PO DAILY 10/24/19 [History] Tamsulosin [Flomax] 0.4 mg PO DAILY 10/24/19 [History] Temazepam [Restoril] 15 mg PO HS PRN 10/24/19 [History] metFORMIN HCL [Glucophage] 1,000 mg PO BID 10/24/19 [History] Follow up Appointment(s)/Referral(s): David Kohler MD [STAFF PHYSICIAN] - 2 Weeks Antolin Castro [Primary Care Provider] - 1-2 days
[2019-10-25] MEDS: NICOTINE 14MG/24HR PATCH TRANSDERM SCH (13:39)
[2019-10-25] MEDS: lamoTRIgine 100 MG TAB PO SCH ×2 (13:40→13:43)
[2019-10-25] MEDS: HEPARIN SODIUM,PORCINE 5,000 UNIT/ML 1 ML VIAL SQ SCH (13:40)
[2019-10-25 13:47] LABS: Glucose,Whole Blood 160 mg/dL (75-99)
--- NOTE | 2019-10-25 14:44 | NM ---
EXAMINATION TYPE: NM stress lexiscan cardiolite DATE OF EXAM: 10/25/2019 COMPARISON: NONE HISTORY: Rest pain TECHNIQUE: After the intravenous administration of 10.56 mCi Tc 99m Sestamibi - Cardiolite resting S PECT images acquired 55 minutes post injection. The patient received 0.4mg Lexiscan, 1230 mCi Tc 99m Sestamibi - Stress images obtained [address] injection FINDINGS: Review of stress and rest SPECT images demonstrates fixed defect involving the inferior wall which co uld be artifactual.. Gated analysis shows normal wall motion with an estimated left ventricular ejec tion fraction of 48 %. IMPRESSION: No scintigraphic evidence for reversible ischemia.
[2019-10-25 15:35] VITALS: BP 133/78; PULSE 80; TEMP 97.8
[2019-10-25 16:36] LABS: Glucose,Whole Blood 147 mg/dL (75-99)
--- NOTE | 2019-10-26 11:42 | EST ---
EXERCISE STRESS AGE: 54 SEX: M HT: 69" WT: 199 PROTOCOL: Lexiscan Cardiolite Stress Test HEART RATE REST: 79 BLOOD PRESSURE REST: 134/89 MAXIMUM HEART RATE ACHIEVED: 99 MAXIMUM BLOOD PRESSURE: 134/89 INDICATIONS: Chest pain, wheezing. CLINICAL INFORMATION: A Lexiscan Cardiolite study was performed. Peak heart rate of 99 was achieved. Maximum blood pressure of 134/89 mmHg was noted. Resting EKG shows normal sinus rhythm with normal MI interval and QRS duration and normal ST-T waves. No ST-segment depression suggestive of ischemia is noted. The results of the nuclear study will follow. MMODL / IJN: [id number] /
== END 2019-10-25 17:35 | disposition home or self-care (01) ==
LOC: EC 10:15 → 1SOBS 12:29
PROVIDERS: ADMIT Family Medicine; ATTEND Family Medicine
DX: R07.89 Other chest pain (principal); J44.9 Chronic obstructive pulmonary disease, unspecified; I35.8 Other nonrheumatic aortic valve disorders; I51.7 Cardiomegaly; E11.65 Type 2 diabetes mellitus with hyperglycemia; M19.90 Unspecified osteoarthritis, unspecified site; N40.0 Benign prostatic hyperplasia without lower urinary tract symptoms; K58.9 Irritable bowel syndrome, unspecified; L40.9 Psoriasis, unspecified; F17.200 Nicotine dependence, unspecified, uncomplicated; F41.9 Anxiety disorder, unspecified; F31.9 Bipolar disorder, unspecified; F43.10 Post-traumatic stress disorder, unspecified; Z96.652 Presence of left artificial knee joint; Z79.1 Long term (current) use of non-steroidal anti-inflammatories (NSAID); Z79.899 Other long term (current) drug therapy
CPT/HCPCS: 93005 ×2; 96372 ×2; 99285; 36415; 93017; 93306; 80164; 83880; 80061; 80053; 83735; 84484; 85025; 85610; 85730; 71046; 78452; G0378 ×2; A9500; S4990 ×2; J1644 ×2; J2785

== ENCOUNTER 2019-11-07 12:20 | Observation (INO) | payer MEDICARE ==
[2019-11-07] MEDS ORDERED: ASPIRIN 81 MG PO STA (12:38)
[2019-11-07] MEDS ORDERED: NITROGLYCERIN SL TABS 0.4 MG TAB SUBLINGUAL STA ×3 (12:38)
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
[2019-11-07 13:07] LABS: Basophils % (A) 0 %; Eosinophils # (A) 0.2 k/uL (0-0.7); Eosinophils % (A) 3 %; HCT 41.1 % (39.0-53.0); HGB 14.3 gm/dL (13.0-17.5); Lymphocytes # (A) 1.5 k/uL (1.0-4.8); Lymphocytes % (A) 19 %; MCH 31.1 pg (25.0-35.0); MCHC 34.9 g/dL (31.0-37.0); MCV 89.2 fL (80.0-100.0); Mean Platelet Volume 8.6; Monocytes # (A) 0.3 k/uL (0-1.0); Monocytes % (A) 3 %; Neutrophils # (A) 5.6 k/uL (1.3-7.7); Neutrophils % (A) 73 %; Platelet Count 172 k/uL (150-450); RBC 4.61 m/uL (4.30-5.90); RDW 12.5 % (11.5-15.5); WBC 7.6 k/uL (3.8-10.6)
[2019-11-07 13:15] LABS: AST 35 U/L (17-59); African American GFR (CKD) >90 (>60 ml/min/1.73 sqM); Alkaline Phosphatase 85 U/L (38-126); Anion Gap 10 mmol/L; Blood Urea Nitrogen 16 mg/dL (9-20); Calcium 8.8 mg/dL (8.4-10.2); Carbon Dioxide 22 mmol/L (22-30); Chloride 106 mmol/L (98-107); Creatine Kinase 117 U/L (55-170); Glucose 267 mg/dL (74-99); Magnesium 1.6 mg/dL (1.6-2.3); Non-African American GFR(CKD) >90 (>60 ml/min/1.73 sqM); Potassium 4.3 mmol/L (3.5-5.1); Sodium 138 mmol/L (137-145); Total Bilirubin 0.2 mg/dL (0.2-1.3); Total Protein 6.5 g/dL (6.3-8.2)
--- NOTE | 2019-11-07 13:15 | XR ---
EXAMINATION TYPE: XR chest 2V DATE OF EXAM: 11/07/2019 COMPARISON: Prior chest 10/24/2019 HISTORY: Chest pain, shortness of breath TECHNIQUE: Frontal and lateral views of the chest are obtained. FINDINGS: There is no focal air space opacity, pleural effusion, or pneumothorax seen. The cardiac silhouette size is within normal limits. There are overlying cardiac leads. The osseous structures a re intact. Question some mild prominence of the interstitium as on prior. There is bronchial wall thi ckening present. IMPRESSION: Correlate for bronchitis, follow-up as indicated. Additional findings above.
[2019-11-07 13:20] LABS: D-Dimer 0.22 mg/L FEU (<0.60); Partial Thromboplastin Time 25.9 sec (22.0-30.0); Prothrombin Time 10.3 sec (9.0-12.0)
[2019-11-07 13:23] LABS: ALT 42 U/L (4-49)
[2019-11-07] MEDS ORDERED: NITROGLYCERIN SL TABS 0.4 MG TAB SUBLINGUAL PRN (13:57)
[2019-11-07] MEDS ORDERED: NALOXONE 0.4 MG/ML 1 ML VIAL IV PRN (15:52)
[2019-11-07] MEDS ORDERED: ACETAMINOPHEN TAB 325 MG TAB PO PRN (15:52)
[2019-11-07] MEDS ORDERED: ONDANSETRON 4 MG/2 ML VIAL IVP PRN (15:52)
[2019-11-07] MEDS ORDERED: NICOTINE POLACRILEX 2 MG GUM BUCCAL PRN (15:52)
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
[2019-11-07 16:30] LABS: Glucose,Whole Blood 207 mg/dL (75-99)
[2019-11-07] MEDS: SODIUM CHLORIDE 0.9% 1,000 ML IV SCH (16:39)
[2019-11-07] MEDS: NITROGLYCERIN OINT 1 INCH/GM PACKET TOPICAL SCH ×2 (17:14→23:09)
[2019-11-07] MEDS: INSULIN ASPART (NovoLOG) 100 UNIT/ML VIAL SQ SCH ×2 (17:19→19:56)
[2019-11-07 19:45] LABS: Glucose,Whole Blood 140 mg/dL (75-99)
[2019-11-07 23:40] LABS: Hemoglobin A1C 6.5 % (4.0-6.0)
[2019-11-07 23:56] VITALS: RESP 18
[2019-11-08] MEDS: SODIUM CHLORIDE 0.9% 1,000 ML IV SCH (06:53)
[2019-11-08] MEDS: NITROGLYCERIN OINT 1 INCH/GM PACKET TOPICAL SCH ×2 (06:53→11:28)
[2019-11-08 07:24] LABS: Glucose,Whole Blood 171 mg/dL (75-99)
[2019-11-08 07:28] LABS: Cholesterol 162 mg/dL (<200); HDL Cholesterol 41 mg/dL (40-60); LDL Cholesterol,Calculated 79 mg/dL (0-99); Triglycerides 209 mg/dL (<150)
[2019-11-08 07:56] VITALS: TEMP 97.7
[2019-11-08] MEDS ORDERED: NICOTINE 14MG/24HR PATCH TRANSDERM SCH (09:00)
[2019-11-08] MEDS ORDERED: ASPIRIN 325 MG TAB PO SCH (09:00)
[2019-11-08] MEDS: INSULIN ASPART (NovoLOG) 100 UNIT/ML VIAL SQ SCH ×2 (09:15→12:17)
[2019-11-08] MEDS ORDERED: ALPRAZolam 0.5 MG TAB PO PRN (09:18)
[2019-11-08] MEDS ORDERED: ALPRAZolam 0.25 MG TAB PO PRN (09:18)
[2019-11-08] MEDS ORDERED: LIDOCAINE 1% INJ 10MG/ML (20 ML MDV) ONE (09:40)
[2019-11-08] MEDS ORDERED: IV FLUID CONTINUATION 1,000 ML IV ONE (09:41)
[2019-11-08] MEDS ORDERED: VERAPAMIL 2.5 MG/ML 2 ML AMP ONE (09:41)
[2019-11-08] MEDS ORDERED: MIDAZOLAM 2 MG/2 ML VIAL IVP ONE ×2 (10:02)
[2019-11-08] MEDS ORDERED: fentaNYL (PF) 50 MCG/ML 2 ML AMP ONE (10:09)
[2019-11-08] MEDS ORDERED: fentaNYL (PF) 50 MCG/ML 2 ML AMP IVP ONE (10:10)
[2019-11-08] MEDS ORDERED: HEPARIN SODIUM 1,000 UN/ML (10ML VL) ONE (10:10)
[2019-11-08] MEDS ORDERED: LIDOCAINE 1% INJ 10MG/ML (20 ML MDV) SQ ONE (10:10)
[2019-11-08] MEDS ORDERED: VERAPAMIL SYRINGE (5 MG/10 ML) INTRAARTER ONE (10:11)
[2019-11-08] MEDS ORDERED: HEPARIN SODIUM 1,000 UN/ML (10ML VL) IV ONE (10:13)
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
[2019-11-08] MEDS ORDERED: LISINOPRIL 2.5 MG TAB PO SCH (10:15)
[2019-11-08] MEDS ORDERED: IOPAMIDOL-370 125ML BTL INJ ONE (10:18)
[2019-11-08] MEDS ORDERED: RX INFO: IV CONTRAST WAS GIVEN 1 EACH MISC MISCELLANE PRN (10:26)
[2019-11-08] MEDS ORDERED: SODIUM CHLORIDE 0.9% 1,000 ML IV SCH (10:30)
--- NOTE | 2019-11-08 10:32 | P.PCN ---
Date of Procedure: 11/08/19 Operative Findings: CARDIAC CATHETERIZATION PERFORMING PHYSICIAN: Guy Boo MD, RPVI PROCEDURE PERFORMED: 1. Selective right and left coronary angiogram 2. Left heart catheterization INDICATION: This is a very pleasant 54-year-old gentleman with diabetes and hypertension who presented to the hospital complaining of chest discomfort and ruled out for acute coronary event. This is his second hospital admission with a chest discomfort. 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 Local anesthesia was performed using lidocaine subcutaneously. The right radial artery was cannulated using Seldinger technique, the guidewire passed easily, following that we advanced a 5-Paraguayan sheath dilator assembly, the wire and dilator were removed and sheath was flushed. Following that, 2 mg of verapamil along with 10,000 unit heparin were given. Selective right and left coronary angiogram using a 6-Paraguayan JR4 and JL 3.5 catheters. Following that we did left heart catheterization using 6-Paraguayan pigtail catheter. The procedure was completed there was no complication. SELECTIVE CORONARY ANGIOGRAM: The right coronary artery: Is a large caliber vessel and dominant vessel. Its angiographically normal. Distally bifurcates into PDA and PLV branches and both appeared to be angiographically normal Left main: Is a large caliber vessel. Its angiographically normal. Bifurcates into LCx, ramus intermedius, and left anterior descending artery The left circumflex: Is a moderate caliber vessel and nondominant vessel. Its angiographically normal. The midportion gives rise into an OM branch which seems to be angiographically normal The ramus intermedius: Is angiographically normal. Its a large caliber vessel. The left anterior descending artery: Is a large caliber vessel. Its angiographically normal. It gives rises into the first and second diagonal branches and both appeared to be angiographically normal HEMODYNAMICS: And the LVEDP was 16 mmHg. CONCLUSION: 1. Normal coronary angiogram 2. Mildly elevated LVEDP POSTPROCEDURE MANAGEMENT: 1. Medical treatment 2. Follow-up with the patient
[2019-11-08 11:39] LABS: Glucose,Whole Blood 238 mg/dL (75-99)
[2019-11-08 13:54] VITALS: BP 144/82; PULSE 75
--- NOTE | 2019-11-08 16:55 | P.DS ---
Providers Date of admission: 11/07/19 13:58 Expected date of discharge: 11/08/19 Attending physician: Martha Su, DO Consults: 11/07/19 13:58 Consult Physician Urgent Consulting Provider: Farheen Mayes Consult Reason/Comments: cp Do you want consulting provider notified?: Yes Primary care physician: Antolin Castro Hospital Course: Discharge Diagnosis: Chest pain, noncardiac Probable GERD Anxiety Moderate aortic stenosis Diabetes mellitus type 2 with hyperglycemia Tobacco abuse Hypertension, controlled Dyslipidemia COPD without exacerbation Hospital Course: Patient is a 54-year-old male with a past medical history of diabetes, hypertension, COPD, and dyslipidemia who presented to the emergency department with complaints of chest pain. Of note he had been hospitalized here on 10/23 for chest pain. At that point in time he underwent a Lexiscan stress test which showed an ejection fraction of 48% and no signs of reversible ischemia. At that point in time he also had an echocardiogram done which showed moderate aortic stenosis and cardiology recommended outpatient [facility]. He has not yet had that completed or heard of an appointment for that. On arrival to the ER this time his blood pressure was within normal limits at 111/73. Laboratory analysis was essentially unremarkable other than elevated glucose at 267. Magnesium was relatively low at 1.6. Troponin was negative. EKG is reviewed by myself revealed normal sinus rhythm at a rate of 81 with some left axis deviation, SD 172, QRS 92, QTC [address]-T wave changes. He received aspirin and nitro in the emergency department with improvement in his pain. He is placed in cardiac obs. His troponins remained normal. He was seen by cardiology. He underwent cardiac cath which showed normal coronary arteries. We will start a PPI trial. He will follow with Dr. Kohler in [address] [facility] and [address] Castro in 3-5 days for evlauation of non cardiac chest pain. Patient seen and examined at bedside. No additional chest pain, shortness of breath, or nausea, Vital signs reviewed and stable. General: non toxic, no distress, appears at stated age Derm: warm, dry Head: atraumatic, normocephalic, symmetric Eyes: EOMI, no lid lag, anicteric sclera Mouth: no lip lesion, mucus membranes moist Cardiovascular: S1S2 reg, no murmur, positive posterior tibial pulse bilateral, Lungs: CTA bilateral, no rhonchi, no rales , no accessory muscle use Abdominal: soft, nontender to palpation, no guarding, no appreciable organ omegaly Ext: no gross muscle atrophy, no edema, no contractures Neuro: CN II-XI grossly intact, no focal neuro deficits Psych: Alert, oriented, appropriate affect A total of 25 minutes of time were spent preparing this complex discharge summary . Patient Condition at Discharge: Stable Plan - Discharge Summary Discharge Rx Participant: No New Discharge Prescriptions: New Pantoprazole [Protonix] 40 mg PO DAILY #30 tablet.dr Continue ALPRAZolam [Xanax] 0.5 mg PO BID PRN PRN Reason: Anxiety lamoTRIgine [LaMICtal] 200 mg PO BID metFORMIN HCL [Glucophage] 1,000 mg PO BID Temazepam [Restoril] 15 mg PO HS PRN PRN Reason: Insomnia Tamsulosin [Flomax] 0.4 mg PO DAILY Lisinopril [Zestril] 2.5 mg PO DAILY Atorvastatin [Lipitor] 20 mg PO HS Albuterol Inhaler [Ventolin Hfa Inhaler] 1 - 2 puff INHALATION RT-Q6H PRN PRN Reason: Shortness Of Breath ARIPiprazole [Abilify] 30 mg PO DAILY Dulaglutide [Trulicity] 1.5 mg SQ MO FLUoxetine HCL [PROzac] 40 mg PO DAILY Discharge Medication List ALPRAZolam [Xanax] 0.5 mg PO BID PRN 01/11/14 [History] lamoTRIgine [LaMICtal] 200 mg PO BID 07/08/16 [History] ARIPiprazole [Abilify] 30 mg PO DAILY 10/24/19 [History] Albuterol Inhaler [Ventolin Hfa Inhaler] 1 - 2 puff INHALATION RT-Q6H PRN 10/24/19 [History] Atorvastatin [Lipitor] 20 mg PO HS 10/24/19 [History] Dulaglutide [Trulicity] 1.5 mg SQ MO 10/24/19 [History] Lisinopril [Zestril] 2.5 mg PO DAILY 10/24/19 [History] Tamsulosin [Flomax] 0.4 mg PO DAILY 10/24/19 [History] Temazepam [Restoril] 15 mg PO HS PRN 10/24/19 [History] metFORMIN HCL [Glucophage] 1,000 mg PO BID 10/24/19 [History] FLUoxetine HCL [PROzac] 40 mg PO DAILY 11/07/19 [History] Pantoprazole [Protonix] 40 mg PO DAILY #30 tablet. 11/08/19 [Rx] Follow up Appointment(s)/Referral(s): Guy Boo MD [STAFF PHYSICIAN] - 11/21/19 2:00 pm (Please bring picture ID / drivers license, list of home medications and insurance information ) Antolin Castro [Primary Care Provider] - 11/14/19 11:00 am Patient Instructions/Handouts: Chest Pain (DC) Activity/Diet/Wound Care/Special Instructions: 1) No flexing at the wrist or lifting anything over 5 pounds for 5 days 2) Remove any dressing over the puncture site in 24 hours and leave open to air 3) Do NOT submerge in water for 3 days 4) Continue to check right arm and hand for blanching, sensation, numbness, temperature and color. Discharge Disposition: HOME SELF-CARE
[2019-11-08] MEDS ORDERED: ATORVASTATIN 20 MG TAB PO SCH (21:00)
[2019-11-09] MEDS ORDERED: ASPIRIN 81 MG PO SCH (09:00)
== END 2019-11-08 15:01 | disposition home or self-care (01) ==
LOC: EC 12:20 → 1SOBS 13:58
PROVIDERS: ADMIT Internal Medicine; ATTEND Internal Medicine
DX: R07.89 Other chest pain (principal); I35.0 Nonrheumatic aortic (valve) stenosis; I10 Essential (primary) hypertension; E78.5 Hyperlipidemia, unspecified; E11.65 Type 2 diabetes mellitus with hyperglycemia; F17.200 Nicotine dependence, unspecified, uncomplicated; E78.00 Pure hypercholesterolemia, unspecified; J44.9 Chronic obstructive pulmonary disease, unspecified; L02.92 Furuncle, unspecified; N40.0 Benign prostatic hyperplasia without lower urinary tract symptoms; M51.9 Unspecified thoracic, thoracolumbar and lumbosacral intervertebral disc disorder; M17.0 Bilateral primary osteoarthritis of knee; Z79.84 Long term (current) use of oral hypoglycemic drugs; F43.10 Post-traumatic stress disorder, unspecified
CPT/HCPCS: 93005 ×2; 99285; 36415; 93458; 85379; 80061; 80053; 82550; 83735; 84484 ×2; 85025; 85610; 85730; 83036; 71046; G0378 ×2; C1769; C1894; S4990; J2250; J2001; J3010; J1644; Q9967

== ENCOUNTER 2019-12-19 19:33 | Emergency (ER) | payer MEDICARE, OTHER ==
[2019-12-19 19:55] VITALS: TEMP 97.9
[2019-12-19] MEDS ORDERED: ACET/COD 300 MG/30 MG STARTER PACK 6 TAB BTL PO STA (20:35)
[2019-12-19] MEDS ORDERED: SULFAMETH-TMP DS STARTER PACK 2 TAB BTL PO STA (20:35)
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
[2019-12-19 21:06] VITALS: BP 126/78; PULSE 85; RESP 20
== END 2019-12-19 21:05 | disposition home or self-care (01) ==
LOC: EC 19:33
DX: L02.214 Cutaneous abscess of groin (principal); R59.1 Generalized enlarged lymph nodes; E11.9 Type 2 diabetes mellitus without complications; J44.9 Chronic obstructive pulmonary disease, unspecified; N40.0 Benign prostatic hyperplasia without lower urinary tract symptoms; M17.0 Bilateral primary osteoarthritis of knee; F17.200 Nicotine dependence, unspecified, uncomplicated; Z96.652 Presence of left artificial knee joint; Z79.51 Long term (current) use of inhaled steroids; Z79.4 Long term (current) use of insulin; Z79.899 Other long term (current) drug therapy
CPT/HCPCS: 87070; 87205; 99283

== ENCOUNTER → 2020-06-11 | Outpatient (CLI) | payer MEDICARE | END | disposition home or self-care (01) | LOC: LABWHC1 11:38 | PROVIDERS: ATTEND Family Medicine | DX: Z20.828 Contact with and (suspected) exposure to other viral communicable diseases (principal) | CPT/HCPCS: U0003; C9803 ==

== ENCOUNTER 2020-07-16 18:25 | Observation (INO) | payer MEDICARE ==
[2020-07-16] MEDS ORDERED: NITROGLYCERIN OINT 1 INCH/GM PACKET TOPICAL STA (18:51)
[2020-07-16] MEDS ORDERED: ASPIRIN 81 MG PO STA (18:51)
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
[2020-07-16 19:12] LABS: Basophils % (A) 1 %; Eosinophils # (A) 0.1 k/uL (0-0.7); Eosinophils % (A) 2 %; HCT 46.9 % (39.0-53.0); HGB 15.4 gm/dL (13.0-17.5); Lymphocytes # (A) 1.4 k/uL (1.0-4.8); Lymphocytes % (A) 20 %; MCH 29.5 pg (25.0-35.0); MCHC 32.9 g/dL (31.0-37.0); MCV 89.9 fL (80.0-100.0); Mean Platelet Volume 8.6; Monocytes # (A) 0.3 k/uL (0-1.0); Monocytes % (A) 5 %; Neutrophils % (A) 71 %; Platelet Count 153 k/uL (150-450); RBC 5.22 m/uL (4.30-5.90); RDW 12.8 % (11.5-15.5)
--- NOTE | 2020-07-16 19:18 | XR ---
EXAMINATION TYPE: XR chest 2V DATE OF EXAM: 07/16/2020 COMPARISON: 11/07/2019 HISTORY: Weakness TECHNIQUE: FINDINGS: Heart is normal. Lungs are clear of consolidation. There is no definite pleural effusion. T here are no hilar masses. There is some coarsening of interstitial markings. IMPRESSION: Mild pulmonary interstitial infiltrates improved compared to old exam. No obvious heart f ailure.
[2020-07-16 19:23] LABS: ALT 191 U/L (4-49); AST 95 U/L (17-59); African American GFR (CKD) >90 (>60 ml/min/1.73 sqM); Albumin 4.3 g/dL (3.5-5.0); Alkaline Phosphatase 93 U/L (38-126); Anion Gap 9 mmol/L; Blood Urea Nitrogen 15 mg/dL (9-20); Calcium 9.4 mg/dL (8.4-10.2); Carbon Dioxide 23 mmol/L (22-30); Chloride 104 mmol/L (98-107); Glucose 178 mg/dL (74-99); Magnesium 1.9 mg/dL (1.6-2.3); Non-African American GFR(CKD) 90 (>60 ml/min/1.73 sqM); Partial Thromboplastin Time 25.6 sec (22.0-30.0); Potassium 4.4 mmol/L (3.5-5.1); Prothrombin Time 10.2 sec (9.0-12.0); Sodium 136 mmol/L (137-145); Total Bilirubin 0.4 mg/dL (0.2-1.3); Total Protein 7.2 g/dL (6.3-8.2)
[2020-07-16] MEDS ORDERED: HEPARIN SODIUM,PORCINE 5,000 UNIT/ML 1 ML VIAL IV ONE (19:54)
[2020-07-16] MEDS ORDERED: NITROGLYCERIN SL TABS 0.4 MG TAB SUBLINGUAL PRN (20:00)
[2020-07-16] MEDS ORDERED: HEPARIN SOD,PORK IN 0.45% NACL 25,000 UNIT in 0.45% NACL 1 250ML.BAG IV SCH (20:00)
[2020-07-16] MEDS ORDERED: TEMAZEPAM 15 MG CAP PO PRN (20:24)
[2020-07-16] MEDS ORDERED: ALPRAZolam 0.5 MG TAB PO PRN (20:24)
[2020-07-16] MEDS ORDERED: TAMSULOSIN 0.4 MG CAP.ER.24H PO SCH (21:00)
[2020-07-16] MEDS ORDERED: ARIPiprazole 15 MG TAB PO SCH (21:00)
[2020-07-16] MEDS ORDERED: ATORVASTATIN 20 MG TAB PO SCH (21:00)
[2020-07-16] MEDS ORDERED: lisinopriL 5 MG TAB PO SCH (21:00)
[2020-07-16 21:11] LABS: Glucose,Whole Blood 203 mg/dL (75-99)
[2020-07-16] MEDS: DIVALPROEX 250 MG TABLET.DR PO SCH (21:23)
[2020-07-16] MEDS: lamoTRIgine 100 MG TAB PO SCH (21:23)
[2020-07-16] MEDS: FLUoxetine HCL 20 MG CAP PO SCH (21:23)
[2020-07-16] MEDS: NITROGLYCERIN OINT 1 INCH/GM PACKET TOPICAL SCH (23:07)
[2020-07-17 03:03] LABS: Cholesterol 156 mg/dL (<200); HDL Cholesterol 40 mg/dL (40-60); LDL Cholesterol,Calculated 77 mg/dL (0-99); Triglycerides 196 mg/dL (<150)
[2020-07-17 06:02] LABS: Glucose,Whole Blood 132 mg/dL (75-99)
[2020-07-17] MEDS: NITROGLYCERIN OINT 1 INCH/GM PACKET TOPICAL SCH (06:35)
[2020-07-17] MEDS ORDERED: NON FORMULARY DRUG (Empagliflozin [Jardiance] 25 MG Tablet) PO SCH (09:00)
[2020-07-17] MEDS ORDERED: ASPIRIN 325 MG TAB PO SCH (09:00)
[2020-07-17] MEDS: FLUoxetine HCL 20 MG CAP PO SCH (09:09)
[2020-07-17] MEDS: lamoTRIgine 100 MG TAB PO SCH (09:09)
[2020-07-17] MEDS: DIVALPROEX 250 MG TABLET.DR PO SCH (09:09)
[2020-07-17 09:27] VITALS: RESP 18; TEMP 98.2
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
[2020-07-17 11:30] LABS: Glucose,Whole Blood 189 mg/dL (75-99)
[2020-07-17 11:49] VITALS: PULSE 87
[2020-07-17 11:52] VITALS: BP 108/68
[2020-07-17 14:21] LABS: Hemoglobin A1C 9.3 % (4.0-6.0)
[2020-07-17 16:32] LABS: Glucose,Whole Blood 139 mg/dL (75-99)
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
--- NOTE | 2020-07-17 19:33 | P.DS ---
Providers Date of admission: 07/16/20 20:00 Expected date of discharge: 07/17/20 Attending physician: Nate Magallon Consults: 07/16/20 20:00 Consult Physician Urgent Consulting Provider: Card[facility] [place] Consult Reason/Comments: Unstable angina Do you want consulting provider notified?: Yes Primary care physician: Jaquan Kent [place] [facility] Course: Chief Complaint: Chest pain History of presenting complaint: This is a pleasant 55-year-old patient of Dr. Antonieta Kent. Chronic stable medical conditions include COPD, diabetes, osteoarthritis, BPH, psoriasis. Has known moderate aortic stenosis. Arthritis. For 2 days patient been having chest pressure across the chest off and on. Patient: Hunting and walked quite a bit more than a while and specially developed the pain after that. Some associated dizziness lightheadedness slight perspiration. No radiation. Admitted to rule out cardiac cause chest pain free this morning. Had no cough swelling or pain. In October of this year patient did have a cardiac catheterization that showed normal coronaries. Just prior to that he had also to negative nuclear stress test. Patient seen by cardiology. [place] for discharge Consultation: Dr. Campos from [facility] Physical examination: VITAL SIGNS: 98.2, 87, 16, 108/68, 95% room air GENERAL: BMI 26.1, sitting up, comfortable. EYES: Pupils equal. Conjunctiva normal. HEENT: External appearance of nose and ears normal, oral cavity grossly normal. NECK: JVD not raised; masses not palpable. HEART: First and second heart sounds are normal; no edema. LUNGS: Respiratory rate normal; decreased breath sounds. ABDOMEN: Soft, nontender, liver spleen not palpable, no masses palpable. PSYCH: Alert and oriented x3; mood and affect normal. INVESTIGATIONS, reviewed in the clinical context: White count 7.0 hemoglobin 15.4 platelets 153 potassium 4.4 creatinine 0.95 AST 95 ALT 191 Troponin I 3 negative LDL 77 HbA1c 9.3 EKG tracing personally reviewed by me-normal sinus rhythm Chest x-ray film personally reviewed by me-questionable infiltrate Assessment: -Anterior chest wall pain. Possibly muscular skeletal. Patient have a cardiac catheterization in October of this year that was unremarkable. -Diabetes mellitus type 2 on oral hypoglycemic -COPD in an ex-smoker -Bipolar disorder -Hepatitis cause unknown.-Further workup as outpatient per PCP Disposition: Home Patient Condition at Discharge: Stable Plan - Discharge Summary Discharge Rx Participant: No New Discharge Prescriptions: New Nitroglycerin Sl Tabs [Nitrostat] 0.4 mg SUBLINGUAL Q5M PRN #25 tab PRN Reason: Chest Pain Continue ALPRAZolam [Xanax] 0.5 mg PO BID PRN PRN Reason: Anxiety lamoTRIgine [LaMICtal] 200 mg PO BID Temazepam [Restoril] 15 mg PO HS PRN PRN Reason: Insomnia Tamsulosin [Flomax] 0.4 mg PO HS Atorvastatin [Lipitor] 20 mg PO HS ARIPiprazole [Abilify] 30 mg PO HS Dulaglutide [Trulicity] 1.5 mg SQ MO Albuterol Sulfate [Ventolin HFA] 2 puff INHALATION RT-Q6H PRN PRN Reason: Shortness Of Breath Divalproex [Depakote] 250 mg PO BID Empagliflozin [Jardiance] 25 mg PO DAILY FLUoxetine HCL [PROzac] 20 mg PO TID Fluticasone Nasal [place] [Flonase Nasal [place]] 1 spray EA NOSTRIL DAILY PRN PRN Reason: Allergy Symptoms Lisinopril [Zestril] 5 mg PO HS Amoxicillin 500 mg PO DIRECTED Ibuprofen 800 mg PO Q8H PRN PRN Reason: Pain Discharge Medication List ALPRAZolam [Xanax] 0.5 mg PO BID PRN 01/11/14 [History] lamoTRIgine [LaMICtal] 200 mg PO BID 07/08/16 [History] ARIPiprazole [Abilify] 30 mg PO HS 10/24/19 [History] Atorvastatin [Lipitor] 20 mg PO HS 10/24/19 [History] Dulaglutide [Trulicity] 1.5 mg SQ MO 10/24/19 [History] Tamsulosin [Flomax] 0.4 mg PO HS 10/24/19 [History] Temazepam [Restoril] 15 mg PO HS PRN 10/24/19 [History] Albuterol Sulfate [Ventolin HFA] 2 puff INHALATION RT-Q6H PRN 07/16/20 [History] Amoxicillin 500 mg PO DIRECTED 07/16/20 [History] Divalproex [Depakote] 250 mg PO BID 07/16/20 [History] Empagliflozin [Jardiance] 25 mg PO DAILY 07/16/20 [History] FLUoxetine HCL [PROzac] 20 mg PO TID 07/16/20 [History] Fluticasone Nasal [place] [Flonase Nasal [place]] 1 spray EA NOSTRIL DAILY PRN 07/16/20 [History] Ibuprofen 800 mg PO Q8H PRN 07/16/20 [History] Lisinopril [Zestril] 5 mg PO HS 07/16/20 [History] Nitroglycerin Sl Tabs [Nitrostat] 0.4 mg SUBLINGUAL Q5M PRN #25 tab 07/17/20 [Rx] Follow up Appointment(s)/Referral(s): Guy Boo MD [STAFF PHYSICIAN] - 07/24/20 11:15 am Jaquan Kent DO [Primary Care Provider] - 07/18/20 11:30 am Patient Instructions/Handouts: Angina (DC) Discharge Disposition: HOME SELF-CARE
== END 2020-07-17 16:49 | disposition home or self-care (01) ==
LOC: EC 18:25 → INTOOBSV 20:00 → 3SCARD 20:00 → OBSVTOIN 20:00
PROVIDERS: ADMIT Hospitalist; ATTEND Hospitalist
DX: R07.89 Other chest pain (principal); R42 Dizziness and giddiness; R61 Generalized hyperhidrosis; E11.9 Type 2 diabetes mellitus without complications; J44.9 Chronic obstructive pulmonary disease, unspecified; F31.9 Bipolar disorder, unspecified; K75.9 Inflammatory liver disease, unspecified; R91.8 Other nonspecific abnormal finding of lung field; N40.0 Benign prostatic hyperplasia without lower urinary tract symptoms; I35.0 Nonrheumatic aortic (valve) stenosis; L40.9 Psoriasis, unspecified; M17.0 Bilateral primary osteoarthritis of knee; M51.9 Unspecified thoracic, thoracolumbar and lumbosacral intervertebral disc disorder; Z79.899 Other long term (current) drug therapy; Z79.1 Long term (current) use of non-steroidal anti-inflammatories (NSAID); Z79.84 Long term (current) use of oral hypoglycemic drugs; Z87.01 Personal history of pneumonia (recurrent); Z87.820 Personal history of traumatic brain injury; Z87.2 Personal history of diseases of the skin and subcutaneous tissue; Z96.652 Presence of left artificial knee joint; Z98.890 Other specified postprocedural states; Z91.89 Other specified personal risk factors, not elsewhere classified; Z80.9 Family history of malignant neoplasm, unspecified
CPT/HCPCS: 96366 ×2; 93005 ×2; 96376; 96365; 99291; 36415; 93306; 80061; 80053; 83735; 84484 ×2; 85025; 85610; 85730 ×2; 83036; 71046; G0378; J1644 ×2

== ENCOUNTER 2020-08-29 19:05 | Observation (INO) | payer MEDICARE ==
[2020-08-29] MEDS ORDERED: ASPIRIN 81 MG PO STA (19:20)
[2020-08-29] MEDS ORDERED: NITROGLYCERIN SL TABS 0.4 MG TAB SUBLINGUAL STA (19:20)
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
[2020-08-29 19:51] LABS: Basophils # (A) 0.1 k/uL (0-0.2); Basophils % (A) 1 %; Eosinophils # (A) 0.2 k/uL (0-0.7); Eosinophils % (A) 2 %; HCT 47.4 % (39.0-53.0); HGB 15.8 gm/dL (13.0-17.5); Lymphocytes # (A) 1.7 k/uL (1.0-4.8); Lymphocytes % (A) 17 %; MCH 29.5 pg (25.0-35.0); MCHC 33.3 g/dL (31.0-37.0); MCV 88.6 fL (80.0-100.0); Mean Platelet Volume 8.3; Monocytes # (A) 0.4 k/uL (0-1.0); Monocytes % (A) 4 %; Neutrophils # (A) 7.7 k/uL (1.3-7.7); Neutrophils % (A) 76 %; Platelet Count 223 k/uL (150-450); RBC 5.35 m/uL (4.30-5.90); WBC 10.1 k/uL (3.8-10.6)
[2020-08-29] MEDS ORDERED: NITROGLYCERIN OINT 1 INCH/GM PACKET TOPICAL STA (19:58)
--- NOTE | 2020-08-29 19:59 | XR ---
EXAMINATION TYPE: XR chest 2V DATE OF EXAM: 08/29/2020 COMPARISON: 07/16/2020 HISTORY: Chest pain TECHNIQUE: FINDINGS: There is poor inspiration. Heart size is normal. There are no hilar masses. Mediastinum is normal. There is mild interstitial infiltrate at the lung bases. There are chest leads. Bony thorax i s intact. IMPRESSION: Mild basilar increased pulmonary interstitial density and poor inspiration that is a no ge compared to old exam. No pulmonary consolidation or heart failure.
[2020-08-29] MEDS ORDERED: HEPARIN SODIUM,PORCINE 5,000 UNIT/ML 1 ML VIAL IV ONE (20:03)
[2020-08-29] MEDS ORDERED: NITROGLYCERIN SL TABS 0.4 MG TAB SUBLINGUAL PRN (20:03)
[2020-08-29] MEDS ORDERED: TEMAZEPAM 15 MG CAP PO PRN (20:05)
[2020-08-29] MEDS ORDERED: IBUPROFEN 800 MG TAB PO PRN (20:05)
[2020-08-29] MEDS ORDERED: ALPRAZolam 0.5 MG TAB PO PRN (20:05)
[2020-08-29] MEDS ORDERED: FLUTICASONE 50MCG/SPRAY NASAL 16GM EA NOSTRIL PRN (20:05)
[2020-08-29 20:13] LABS: Albumin 4.5 g/dL (3.5-5.0); Magnesium 1.7 mg/dL (1.6-2.3); Potassium 4.1 mmol/L (3.5-5.1); Total Bilirubin 0.4 mg/dL (0.2-1.3); Total Protein 7.7 g/dL (6.3-8.2)
[2020-08-29] MEDS ORDERED: HEPARIN SOD,PORK IN 0.45% NACL 25,000 UNIT in 0.45% NACL 1 250ML.BAG IV SCH (20:15)
[2020-08-29 20:20] LABS: D-Dimer 0.33 mg/L FEU (<0.60); INR 0.9 (<1.2); Partial Thromboplastin Time 23.7 sec (22.0-30.0); Prothrombin Time 10.2 sec (9.0-12.0)
[2020-08-29] MEDS: SODIUM CHLORIDE 0.9% 1,000 ML IV SCH (20:39)
[2020-08-29] MEDS ORDERED: ATORVASTATIN 20 MG TAB PO SCH (21:00)
[2020-08-29] MEDS ORDERED: TAMSULOSIN 0.4 MG CAP.ER.24H PO SCH (21:00)
[2020-08-29] MEDS ORDERED: lisinopriL 5 MG TAB PO SCH (21:00)
[2020-08-29] MEDS: lamoTRIgine 100 MG TAB PO SCH (21:27)
[2020-08-29] MEDS: DIVALPROEX 250 MG TABLET.DR PO SCH (21:28)
[2020-08-30] MEDS: NITROGLYCERIN OINT 1 INCH/GM PACKET TOPICAL SCH ×2 (00:29→06:16)
[2020-08-30] MEDS ORDERED: HEPARIN SODIUM,PORCINE 5,000 UNIT/ML 1 ML VIAL IV PRN (03:15)
[2020-08-30 04:26] LABS: Cholesterol 181 mg/dL (<200); HDL Cholesterol 51 mg/dL (40-60); LDL Cholesterol,Calculated 85 mg/dL (0-99); Triglycerides 225 mg/dL (<150)
[2020-08-30] MEDS: SODIUM CHLORIDE 0.9% 1,000 ML IV SCH (06:15)
[2020-08-30 06:25] LABS: Glucose,Whole Blood 163 mg/dL (75-99)
[2020-08-30] MEDS: ALBUTEROL HFA INHALER INHALATION PRN ×2 (07:22→13:20)
[2020-08-30] MEDS ORDERED: INSULIN ASPART (NovoLOG) 100 UNIT/ML VIAL SQ SCH (07:30)
[2020-08-30] MEDS ORDERED: DOBUTamine DRIP for NUC MED 500 MG in DEXTROSE/WATER 1 250ML.BAG IV ONE (08:26)
[2020-08-30 08:31] VITALS: BP 114/80; PULSE 103; RESP 16; TEMP 98
[2020-08-30] MEDS ORDERED: ASPIRIN 325 MG TAB PO SCH (09:00)
[2020-08-30] MEDS ORDERED: NON FORMULARY DRUG (Empagliflozin [Jardiance] 25 MG Tablet) PO SCH (09:00)
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
[2020-08-30 12:53] LABS: Glucose,Whole Blood 158 mg/dL (75-99)
[2020-08-30] MEDS: DIVALPROEX 250 MG TABLET.DR PO SCH (13:44)
[2020-08-30] MEDS: lamoTRIgine 100 MG TAB PO SCH (13:44)
--- NOTE | 2020-08-30 13:56 | ECHOS ---
STRESS ECHOCARDIOGRAM DOBUTAMINE STRESS ECHO LUMASON: - Vial INDICATIONS: Chest pain. MEDICATIONS: BASELINE HEART RATE: 84 BASELINE BLOOD PRESSURE: 119/74 MAXIMUM HEART RATE: 139 MAXIMUM BLOOD PRESSURE: 138/71 85% MPHR: 139 100% MPHR: 164 METS: N/A MAXIMUM STAGE REACHED: 40 mcg/kg/min TOTAL EXERCISE TIME: 10:50 CLINICAL INFORMATION: Baseline EKG shows sinus rhythm, normal axis, normal intervals. The patient was given intravenous dobutamine over a period of 11 minutes as per protocol, achieving 85% of predicted maximal heart rate without chest pain or significant depression. Baseline echo shows normal left ventricular size, wall motion and systolic function. Post dobutamine infusion, there is normal hyperdynamic response of all segments of myocardium noted. CONCLUSION: 1. Negative stress test by EKG criteria. 2. Negative Dobutamine stress echo. JOHNNY / MIRIAMN: [id number] /
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
--- NOTE | 2020-08-30 22:15 | P.DS ---
Providers Date of admission: 08/29/20 20:13 Expected date of discharge: 08/30/20 Attending physician: Nate Magallon Consults: 08/29/20 20:03 Consult Physician Urgent Consulting Provider: Guy Boo Consult Reason/Comments: Chest pain Do you want consulting provider notified?: Yes Primary care physician: [facility] Course: Chief Complaint: Chest pain History of presenting complaint: This is a pleasant 55-year-old patient of Dr. Antonieta Kent. Chronic stable medical conditions include COPD, diabetes, osteoarthritis, BPH, psoriasis. Has known moderate aortic stenosis. Arthritis. In October 2019 patient had a cardiac catheterization that showed normal coronary arteries. Prior to that he had the negative nuclear stress test. Patient now presents with yesterday morning developing squeezing pain in the left infraclavicular area. Lasted for good 2 or 3 hours. Some shortness of breath. Some perspiration. No dizziness or lightheadedness. No cough no shortness breath. No relieving or exacerbating factors. Troponins were negative. Dobutamine stress echocardiogram was negative. Cleared by cardiology. Consultation: Dr. Jacob Garrett from cardiology Past medical history to include: COPD, diabetes, osteoarthritis, BPH, negative cardiac catheterization in October 2019, moderate aortic stenosis, bipolar Social history: started smoking in 1983 up to 2 packs a day. Stopped over 2 months ago.. medical marijuana- 3 joints per day. No alcohol. Family history: adopted Physical examination: VITAL SIGNS: 98, 86, 16, 114/80, 96% room air GENERAL: BMI 26.1, sitting up, comfortable. EYES: Pupils equal. Conjunctiva normal. HEENT: External appearance of nose and ears normal, oral cavity grossly normal. NECK: JVD not raised; masses not palpable. HEART: First and second heart sounds are normal; no edema. LUNGS: Respiratory rate normal; decreased breath sounds. ABDOMEN: Soft, nontender, liver spleen not palpable, no masses palpable. PSYCH: Alert and oriented x3; mood and affect normal. INVESTIGATIONS, reviewed in the clinical context: White count 10.1 hemoglobin 15.8 platelets 223 potassium 4.1 creatinine 1.08 AST 123, ALT 2:30 Troponin I 3 negative LDL 85 EKG tracing personally reviewed by me-normal sinus rhythm Chest x-ray film personally reviewed by me-some venous prominence Dobutamine stress echocardiogram-negative Assessment: -Anterior chest wall pain. Negative cardiac catheterization in October 2019. Could be muscular skeletal -Diabetes mellitus type 2 on oral hypoglycemic -COPD in an ex-smoker -Bipolar disorder -Hepatitis cause unknown.-Further workup as outpatient per PCP Disposition: Home Patient Condition at Discharge: Stable Plan - Discharge Summary New Discharge Prescriptions: Continue ALPRAZolam [Xanax] 0.5 mg PO BID PRN PRN Reason: Anxiety lamoTRIgine [LaMICtal] 200 mg PO BID Temazepam [Restoril] 15 mg PO HS PRN PRN Reason: Insomnia Tamsulosin [Flomax] 0.4 mg PO HS Atorvastatin [Lipitor] 20 mg PO HS ARIPiprazole [Abilify] 30 mg PO HS Dulaglutide [Trulicity] 1.5 mg SQ TU Albuterol Sulfate [Ventolin HFA] 2 puff INHALATION RT-Q6H PRN PRN Reason: Shortness Of Breath Divalproex [Depakote] 250 mg PO BID Empagliflozin [Jardiance] 25 mg PO DAILY Fluticasone Nasal [place] [Flonase Nasal [place]] 1 spray EA NOSTRIL DAILY PRN PRN Reason: Allergy Symptoms Lisinopril [Zestril] 5 mg PO HS Amoxicillin 500 mg PO DIRECTED Ibuprofen 800 mg PO Q8H PRN PRN Reason: Pain Nitroglycerin Sl Tabs [Nitrostat] 0.4 mg SUBLINGUAL Q5M PRN #25 tab PRN Reason: Chest Pain Insulin Aspart [NovoLOG Flexpen] See Protocol SQ ACHS PRN PRN Reason: BS OVER 200 Changed FLUoxetine HCL [PROzac] 20 mg PO DAILY #0 Discharge Medication List ALPRAZolam [Xanax] 0.5 mg PO BID PRN 01/11/14 [History] lamoTRIgine [LaMICtal] 200 mg PO BID 07/08/16 [History] ARIPiprazole [Abilify] 30 mg PO HS 10/24/19 [History] Atorvastatin [Lipitor] 20 mg PO HS 10/24/19 [History] Dulaglutide [Trulicity] 1.5 mg SQ TU 10/24/19 [History] Tamsulosin [Flomax] 0.4 mg PO HS 10/24/19 [History] Temazepam [Restoril] 15 mg PO HS PRN 10/24/19 [History] Albuterol Sulfate [Ventolin HFA] 2 puff INHALATION RT-Q6H PRN 07/16/20 [History] Amoxicillin 500 mg PO DIRECTED 07/16/20 [History] Divalproex [Depakote] 250 mg PO BID 07/16/20 [History] Empagliflozin [Jardiance] 25 mg PO DAILY 07/16/20 [History] Fluticasone Nasal [place] [Flonase Nasal [place]] 1 spray EA NOSTRIL DAILY PRN 07/16/20 [History] Ibuprofen 800 mg PO Q8H PRN 07/16/20 [History] Lisinopril [Zestril] 5 mg PO HS 07/16/20 [History] Nitroglycerin Sl Tabs [Nitrostat] 0.4 mg SUBLINGUAL Q5M PRN #25 tab 07/17/20 [Rx] Insulin Aspart [NovoLOG Flexpen] See Protocol SQ ACHS PRN 08/29/20 [History] FLUoxetine HCL [PROzac] 20 mg PO DAILY #0 08/30/20 [Rx] Follow up Appointment(s)/Referral(s): Maxx Campos DO [STAFF PHYSICIAN] - 1 Week Jaquan Kent DO [Primary Care Provider] - 1-2 days Patient Instructions/Handouts: Chest Pain (GEN) Discharge Disposition: HOME SELF-CARE
== END 2020-08-30 15:03 | disposition home or self-care (01) ==
LOC: EC 19:05 → 1SOBS 20:13
PROVIDERS: ADMIT Hospitalist; ATTEND Hospitalist
DX: R07.89 Other chest pain (principal); I35.0 Nonrheumatic aortic (valve) stenosis; E11.9 Type 2 diabetes mellitus without complications; J44.9 Chronic obstructive pulmonary disease, unspecified; I10 Essential (primary) hypertension; E78.5 Hyperlipidemia, unspecified; M17.0 Bilateral primary osteoarthritis of knee; L40.9 Psoriasis, unspecified; N40.0 Benign prostatic hyperplasia without lower urinary tract symptoms; F31.9 Bipolar disorder, unspecified; F17.210 Nicotine dependence, cigarettes, uncomplicated; K75.9 Inflammatory liver disease, unspecified; E66.9 Obesity, unspecified; Z68.29 Body mass index [BMI] 29.0-29.9, adult; Z79.4 Long term (current) use of insulin; Z79.899 Other long term (current) drug therapy; Z96.652 Presence of left artificial knee joint; Z87.01 Personal history of pneumonia (recurrent); Z87.820 Personal history of traumatic brain injury; Z80.9 Family history of malignant neoplasm, unspecified
CPT/HCPCS: 93005 ×2; 96366 ×2; 96376 ×2; 96365; 99291; 36415; 94640 ×2; 93351; 85379; 83880; 80061; 80053; 82550; 83690; 83735; 84484 ×2; 85025; 85610; 85730 ×2; 71046; G0378 ×2; J1250; J1644 ×3

== ENCOUNTER 2020-11-04 12:56 | Observation (INO) | payer MEDICARE ==
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
[2020-11-04 13:30] LABS: Basophils % (A) 0 %; Eosinophils # (A) 0.2 k/uL (0-0.7); Eosinophils % (A) 2 %; HGB 16.3 gm/dL (13.0-17.5); Lymphocytes # (A) 1.3 k/uL (1.0-4.8); Lymphocytes % (A) 12 %; MCH 30.5 pg (25.0-35.0); MCV 89.8 fL (80.0-100.0); Monocytes # (A) 0.4 k/uL (0-1.0); Monocytes % (A) 4 %; Neutrophils # (A) 8.2 k/uL (1.3-7.7); Neutrophils % (A) 81 %; Platelet Count 143 k/uL (150-450); RBC 5.34 m/uL (4.30-5.90); WBC 10.1 k/uL (3.8-10.6)
--- NOTE | 2020-11-04 13:30 | XR ---
EXAMINATION TYPE: XR chest 2V DATE OF EXAM: 11/04/2020 COMPARISON: 08/29/2020 HISTORY: 55-year-old male chest pain TECHNIQUE: PA and lateral views FINDINGS: Heart normal size. Aorta and pulmonary vasculature within normal limits. Mild interstitial prominence is unchanged. Some strandy right basilar atelectasis. No consolidation or pleural effusion. IMPRESSION: Interstitial prominence is unchanged, likely chronic. No definite acute process.
[2020-11-04 13:41] LABS: ALT 143 U/L (4-49); African American GFR (CKD) >90 (>60 ml/min/1.73 sqM); Albumin 4.3 g/dL (3.5-5.0); Anion Gap 14 mmol/L; Blood Urea Nitrogen 17 mg/dL (9-20); Calcium 9.4 mg/dL (8.4-10.2); Carbon Dioxide 20 mmol/L (22-30); Chloride 104 mmol/L (98-107); Glucose 225 mg/dL (74-99); Non-African American GFR(CKD) >90 (>60 ml/min/1.73 sqM); Sodium 138 mmol/L (137-145); Total Bilirubin 0.5 mg/dL (0.2-1.3); Total Protein 7.1 g/dL (6.3-8.2)
[2020-11-04 13:43] LABS: Magnesium 1.8 mg/dL (1.6-2.3); Potassium 4.4 mmol/L (3.5-5.1)
[2020-11-04 13:44] LABS: AST 63 U/L (17-59); Alkaline Phosphatase 98 U/L (38-126); Partial Thromboplastin Time 23.7 sec (22.0-30.0); Prothrombin Time 10.3 sec (9.0-12.0)
[2020-11-04] MEDS ORDERED: NITROGLYCERIN SL TABS 0.4 MG TAB SUBLINGUAL PRN (14:13)
[2020-11-04 16:26] LABS: Glucose,Whole Blood 160 mg/dL (75-99)
[2020-11-04] MEDS ORDERED: ALBUTEROL NEBULIZED 2.5 MG/3 ML INHALATION PRN (17:35)
[2020-11-04] MEDS ORDERED: ALPRAZolam 0.5 MG TAB PO PRN (17:35)
[2020-11-04 20:35] LABS: Glucose,Whole Blood 183 mg/dL (75-99)
[2020-11-04] MEDS: NICOTINE 14MG/24HR PATCH TRANSDERM SCH (20:41)
[2020-11-04] MEDS: INSULIN ASPART (NovoLOG) 100 UNIT/ML VIAL SQ SCH (20:42)
[2020-11-04] MEDS ORDERED: TEMAZEPAM 15 MG CAP PO PRN (20:48)
[2020-11-04] MEDS ORDERED: GABAPENTIN 300 MG CAP PO PRN (20:48)
[2020-11-04] MEDS ORDERED: lisinopriL 10 MG TAB PO SCH (21:00)
[2020-11-04] MEDS ORDERED: TAMSULOSIN 0.4 MG CAP.ER.24H PO SCH (21:00)
[2020-11-04] MEDS ORDERED: ATORVASTATIN 20 MG TAB PO SCH (21:00)
[2020-11-04] MEDS ORDERED: ARIPiprazole 15 MG TAB PO SCH (21:00)
[2020-11-04] MEDS: lamoTRIgine 100 MG TAB PO SCH (21:12)
[2020-11-04] MEDS: FLUoxetine HCL 20 MG CAP PO SCH (21:12)
[2020-11-04 23:37] VITALS: RESP 16
[2020-11-05 06:46] LABS: Glucose,Whole Blood 141 mg/dL (75-99)
[2020-11-05] MEDS: IPRATROPIUM 0.5 MG/2.5 ML NEBU INHALATION SCH ×2 (07:41→11:40)
[2020-11-05] MEDS: lamoTRIgine 100 MG TAB PO SCH (08:46)
[2020-11-05] MEDS: NICOTINE 14MG/24HR PATCH TRANSDERM SCH (08:47)
[2020-11-05] MEDS: INSULIN ASPART (NovoLOG) 100 UNIT/ML VIAL SQ SCH ×2 (08:47→12:25)
[2020-11-05] MEDS: FLUoxetine HCL 20 MG CAP PO SCH (08:47)
[2020-11-05] MEDS ORDERED: ASPIRIN 325 MG TAB PO SCH (09:00)
[2020-11-05] MEDS ORDERED: tiZANidine 4 MG TAB PO SCH (09:00)
[2020-11-05] MEDS ORDERED: ISOSORBIDE MONONITRATE ER 30 MG TAB.ER.24H PO SCH (10:45)
[2020-11-05 10:51] LABS: Chol/HDL Ratio 4.91; LDL Cholesterol,Calculated 84.4 mg/dL (0.0-131.0); VLDL Calculation 48.6 mg/dL (5.00-40.00)
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
[2020-11-05 11:49] LABS: Glucose,Whole Blood 158 mg/dL (75-99)
[2020-11-05 13:34] VITALS: BP 109/66; PULSE 87; TEMP 97.5
[2020-11-05 14:38] LABS: Hemoglobin A1C 8.6 % (4.0-6.0)
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
--- NOTE | 2020-11-05 20:20 | P.DS ---
Providers Date of admission: 11/04/20 14:13 Expected date of discharge: 11/05/20 Attending physician: Nate Magallon Consults: 11/04/20 14:14 Consult Physician Urgent Consulting Provider: Karri Guadalupe Consult Reason/Comments: chest pain Do you want consulting provider notified?: Yes Primary care physician: Jaquan Kent [facility] Course: Chief Complaint: Left precordial pain History of presenting complaint: pleasant 55-year-old patient of Dr. Antonieta Kent. Chronic stable medical conditions include COPD, diabetes, osteoarthritis, BPH, psoriasis. Has known moderate aortic stenosis. Arthritis. In October 2019 patient had a cardiac catheterization that showed normal coronary arteries. Prior to that he had the negative nuclear stress test. Patient now presents with left precordial tightness. Started off 2 days ago. Present on and off. Not necessarily related to exertion. Had some dizziness and perspiration. No fever no chills. No cough. No radiation. Troponins were negative. Seen by board catcher.. Patient is to follow up with his board catcher. Did inform patient patient could be having vasospastic disease from marijuana. Consultation: Dr. Campos from cardiology Past medical history to include: COPD, diabetes, osteoarthritis, BPH, negative cardiac catheterization in October 2019, moderate aortic stenosis, bipolar Social history: . started smoking in 1983 up to 2 packs a day. Stopped over a month ago. medical marijuana-nearly daily. No alcohol. Family history: adopted Physical examination: VITAL SIGNS: 97.5, 87, 16, 109/66, 96% room air GENERAL: Reclining in bed, comfortable EYES: Pupils equal. Conjunctiva normal. HEENT: External appearance of nose and ears normal, oral cavity grossly normal. NECK: JVD not raised; masses not palpable. HEART: First and second heart sounds are normal; no edema. LUNGS: Respiratory rate normal; decreased breath sounds. ABDOMEN: Soft, nontender, liver spleen not palpable, no masses palpable. PSYCH: Alert and oriented x3; mood and affect normal. INVESTIGATIONS, reviewed in the clinical context: LDL 84 HDL 34 WBC 10.1 hemoglobin 16.3 platelets 143 potassium 4.4 creatinine 0.89 AST 63 ALT 143 Troponin I 2 negative Coronavirus [PCR]-not detected EKG tracing personally reviewed by me-showing poor R-wave progression, sinus rhythm Chest x-ray film personally reviewed by me-lung gates clear Assessment and plan : -Left precordial chest pain in a patient with a negative cardiac catheterization 2019 and also had a negative dobutamine stress echocardiogram in August of this year. Patient could be having angina versus spastic disease from marijuana. Troponin is negative. Cleared by board catcher, to follow-up with his own board catcher. -Diabetes mellitus type 2chronically on insulin. Continue with the same. Follow Accu-Cheks in an ex-smoker -Bipolar disorder, continue with Prozac, Abilify -Hepatitis cause unknown.patient told to follow-up with his family doctor about. He will do so. -Chronic insomnia. Continue with Restoril -BPH. Continue with Flomax Disposition: Home Plan - Discharge Summary Discharge Rx Participant: Yes New Discharge Prescriptions: New Isosorbide Mononitrate ER [Imdur] 30 mg PO DAILY 30 Days #30 tab.er.24h Continue ALPRAZolam [Xanax] 0.5 mg PO BID PRN PRN Reason: Anxiety lamoTRIgine [LaMICtal] 200 mg PO BID Temazepam [Restoril] 15 mg PO HS PRN PRN Reason: Insomnia Tamsulosin [Flomax] 0.4 mg PO HS Atorvastatin [Lipitor] 20 mg PO HS ARIPiprazole [Abilify] 30 mg PO HS Dulaglutide [Trulicity] 1.5 mg SQ TU Albuterol Sulfate [Ventolin HFA] 2 puff INHALATION RT-Q6H PRN PRN Reason: Shortness Of Breath Empagliflozin [Jardiance] 25 mg PO DAILY Fluticasone Nasal [place] [Flonase Nasal [place]] 1 spray EA NOSTRIL DAILY PRN PRN Reason: Allergy Symptoms Lisinopril [Zestril] 5 mg PO HS Nitroglycerin Sl Tabs [Nitrostat] 0.4 mg SUBLINGUAL Q5M PRN #25 tab PRN Reason: Chest Pain Insulin Aspart [NovoLOG Flexpen] See Protocol SQ ACHS PRN PRN Reason: BS OVER 200 tiZANidine HCL 2 mg PO DAILY Insulin Glargine,Hum.rec.anlog [Basaglar Kwikpen U-100] 2 - 5 unit SQ DAILY Gabapentin [Neurontin] 300 mg PO TID PRN PRN Reason: Pain FLUoxetine HCL [PROzac] 20 mg PO TID Umeclidinium [place] [Incruse Ellipta] 1 puff INHALATION RT-DAILY Discontinued Ibuprofen 800 mg PO Q8H PRN PRN Reason: Pain Discharge Medication List ALPRAZolam [Xanax] 0.5 mg PO BID PRN 01/11/14 [History] lamoTRIgine [LaMICtal] 200 mg PO BID 07/08/16 [History] ARIPiprazole [Abilify] 30 mg PO HS 10/24/19 [History] Atorvastatin [Lipitor] 20 mg PO HS 10/24/19 [History] Dulaglutide [Trulicity] 1.5 mg SQ TU 10/24/19 [History] Tamsulosin [Flomax] 0.4 mg PO HS 10/24/19 [History] Temazepam [Restoril] 15 mg PO HS PRN 10/24/19 [History] Albuterol Sulfate [Ventolin HFA] 2 puff INHALATION RT-Q6H PRN 07/16/20 [History] Empagliflozin [Jardiance] 25 mg PO DAILY 07/16/20 [History] Fluticasone Nasal [place] [Flonase Nasal [place]] 1 spray EA NOSTRIL DAILY PRN 07/16/20 [History] Lisinopril [Zestril] 5 mg PO HS 07/16/20 [History] Nitroglycerin Sl Tabs [Nitrostat] 0.4 mg SUBLINGUAL Q5M PRN #25 tab 07/17/20 [Rx] Insulin Aspart [NovoLOG Flexpen] See Protocol SQ ACHS PRN 08/29/20 [History] FLUoxetine HCL [PROzac] 20 mg PO TID 11/04/20 [History] Gabapentin [Neurontin] 300 mg PO TID PRN 11/04/20 [History] Insulin Glargine,Hum.rec.anlog [Basaglar Kwikpen U-100] 2 - 5 unit SQ DAILY 11/04/20 [History] Umeclidinium [place] [Incruse Ellipta] 1 puff INHALATION RT-DAILY 11/04/20 [History] tiZANidine HCL 2 mg PO DAILY 11/04/20 [History] Isosorbide Mononitrate ER [Imdur] 30 mg PO DAILY 30 Days #30 tab.er.24h 11/05/20 [Rx] Follow up Appointment(s)/Referral(s): own-board catcherdr [Other] - 1 Week Jaquan Kent DO [Primary Care Provider] - 1-2 days Patient Instructions/Handouts: Chest Pain (DC) Discharge Disposition: HOME SELF-CARE
[2020-11-06] MEDS ORDERED: NON FORMULARY DRUG (Dulaglutide [Trulicity] 1.5 MG/0.5 ML Pen.Injctr) SQ SCH (17:35)
== END 2020-11-05 15:15 | disposition home or self-care (01) ==
LOC: EC 12:56 → 6NMEDSUR 14:13
PROVIDERS: ADMIT Hospitalist; ATTEND Hospitalist
DX: R07.2 Precordial pain (principal); R07.89 Other chest pain; R11.0 Nausea; R61 Generalized hyperhidrosis; R06.02 Shortness of breath; R42 Dizziness and giddiness; J44.9 Chronic obstructive pulmonary disease, unspecified; E11.9 Type 2 diabetes mellitus without complications; I71.9 Aortic aneurysm of unspecified site, without rupture; E87.2 Acidosis; N40.0 Benign prostatic hyperplasia without lower urinary tract symptoms; M17.0 Bilateral primary osteoarthritis of knee; L40.9 Psoriasis, unspecified; F31.9 Bipolar disorder, unspecified; E78.5 Hyperlipidemia, unspecified; I10 Essential (primary) hypertension; F17.210 Nicotine dependence, cigarettes, uncomplicated; I35.0 Nonrheumatic aortic (valve) stenosis; K75.9 Inflammatory liver disease, unspecified; F51.04 Psychophysiologic insomnia; F41.9 Anxiety disorder, unspecified; T78.40XA Allergy, unspecified, initial encounter; Z87.01 Personal history of pneumonia (recurrent); Z79.899 Other long term (current) drug therapy; Z79.1 Long term (current) use of non-steroidal anti-inflammatories (NSAID); Z79.83 Long term (current) use of bisphosphonates; Z79.4 Long term (current) use of insulin; Z80.9 Family history of malignant neoplasm, unspecified; Z20.822 Contact with and (suspected) exposure to COVID-19
CPT/HCPCS: 93005 ×2; 99285; 36415; 94640 ×2; 80061; 80053; 83735; 84484; 85025; 85610; 85730; 83036; 87635; 71046; G0378 ×2; S4990 ×2

== ENCOUNTER → 2020-11-23 | Outpatient (CLI) | payer MEDICARE ==
[2020-11-23 23:33] LABS: INR 0.98 (0.90-1.11); Partial Thromboplastin Time 27.8 sec (23.5-31.0); Prothrombin Time 10.7 sec (9.9-11.9)
[2020-11-24 00:48] LABS: HCT 43.6 % (39.6-50.0); HGB 14.1 g/dL (13.0-17.0); MCH 29.6 pg (27.0-32.0); MCHC 32.3 g/dL (32.0-37.0); MCV 91.6 fL (80.0-97.0); Platelet Count 215 X 10*3/uL (140-440); RBC 4.76 X 10*6/uL (4.40-5.60); RDW 12.6 % (11.5-14.5); WBC 9.33 X 10*3/uL (4.50-10.00)
[2020-11-24 01:27] LABS: African American GFR (CKD) 86.5 (60.0-200.0); BUN/Creat Ratio 17.27 Ratio (12.00-20.00); Calcium 9.6 mg/dL (8.7-10.3); Non-African American GFR(CKD) 74.6 (60.0-200.0); Potassium 4.8 mmol/L (3.5-5.5)
== END | disposition home or self-care (01) ==
LOC: LABWHC1 15:02
PROVIDERS: ATTEND Internal Medicine Cardiovascular Disease
DX: Z01.810 Encounter for preprocedural cardiovascular examination (principal); Z20.822 Contact with and (suspected) exposure to COVID-19; I35.0 Nonrheumatic aortic (valve) stenosis; I34.0 Nonrheumatic mitral (valve) insufficiency
CPT/HCPCS: 80048; 85027; 85610; 85730; 36415; U0003; C9803; U0005

== ENCOUNTER 2021-09-19 22:04 | Emergency (ER) | payer MEDICARE, OTHER ==
[2021-09-19 22:12] VITALS: BP 131/81; PULSE 79; RESP 20; TEMP 98.3
--- NOTE | 2021-09-19 23:16 | XR ---
EXAMINATION TYPE: XR chest 2V DATE OF EXAM: 09/19/2021 COMPARISON: 11/04/2020 HISTORY: Chest pain TECHNIQUE: FINDINGS: Heart and mediastinum are normal. Lungs are clear. There are sternal wires. Costophrenic an gles are clear. Bony thorax is intact. IMPRESSION: No cardiopulmonary disease. Normal heart. No change.
--- NOTE | 2021-09-19 23:17 | XR ---
EXAMINATION TYPE: XR sternum DATE OF EXAM: 09/19/2021 COMPARISON: NONE HISTORY: Pain TECHNIQUE: 2 views FINDINGS: There are sternal wires. Sternal segments appear to have normal alignment. There is no evid ence of retrosternal mass. No fracture seen. IMPRESSION: Previous sternotomy. No acute abnormality of the sternum.
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
== END 2021-09-20 00:02 | disposition home or self-care (01) ==
LOC: EC 22:04
DX: R07.89 Other chest pain (principal); F17.200 Nicotine dependence, unspecified, uncomplicated; J44.9 Chronic obstructive pulmonary disease, unspecified; E11.9 Type 2 diabetes mellitus without complications; M19.90 Unspecified osteoarthritis, unspecified site; Z79.899 Other long term (current) drug therapy; Z79.4 Long term (current) use of insulin; Z79.84 Long term (current) use of oral hypoglycemic drugs; Z79.51 Long term (current) use of inhaled steroids
CPT/HCPCS: 71046; 71120; 99284

== ENCOUNTER 2024-06-06 17:08 | Observation (INO) | payer MEDICARE ==
[2024-06-06 18:02] LABS: ALT 17 U/L (4-49); AST 20 U/L (17-59); African American GFR (CKD) >90 (>60 ml/min/1.73 sqM); Albumin 4.4 g/dL (3.5-5.0); Alkaline Phosphatase 74 U/L (38-126); Anion Gap 11 mmol/L; Blood Urea Nitrogen 13 mg/dL (9-20); Calcium 10.2 mg/dL (8.4-10.2); Carbon Dioxide 19 mmol/L (22-30); Chloride 107 mmol/L (98-107); Glucose 148 mg/dL (74-99); Magnesium 1.3 mg/dL (1.6-2.3); Non-African American GFR(CKD) >90 (>60 ml/min/1.73 sqM); Potassium 3.9 mmol/L (3.5-5.1); Sodium 137 mmol/L (137-145); Total Bilirubin 0.7 mg/dL (0.2-1.3); Total Protein 7.2 g/dL (6.3-8.2)
[2024-06-06 18:04] LABS: Basophils % (A) 0 %; Eosinophils # (A) 0.1 k/uL (0-0.7); Eosinophils % (A) 1 %; HCT 43.4 % (39.0-53.0); HGB 16.1 gm/dL (13.0-17.5); Hyperchromasia Slight; Lymphocytes # (A) 1.9 k/uL (1.0-4.8); Lymphocytes % (A) 19 %; MCH 30.8 pg (25.0-35.0); MCHC 37.1 g/dL (31.0-37.0); Mean Platelet Volume 9.1; Monocytes # (A) 0.4 k/uL (0-1.0); Monocytes % (A) 4 %; Neutrophils # (A) 7.3 k/uL (1.3-7.7); Neutrophils % (A) 74 %; Platelet Count 189 k/uL (150-450); RBC 5.23 m/uL (4.30-5.90); RDW 12.5 % (11.5-15.5); WBC 9.8 k/uL (3.8-10.6)
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
[2024-06-06 18:12] LABS: Partial Thromboplastin Time 27.2 sec (22.0-30.0); Prothrombin Time 10.9 sec (10.0-12.5)
[2024-06-06] MEDS ORDERED: NALOXONE 0.4 MG/ML 1 ML VIAL IV PRN (22:02)
[2024-06-06] MEDS ORDERED: IPRATROPIUM-ALBUTEROL 3 ML NEB INHALATION PRN (22:11)
[2024-06-06] MEDS: IPRATROPIUM-ALBUTEROL 3 ML NEB INHALATION STA (22:24)
[2024-06-06] MEDS: methylPREDNISolone SOD SUCCI 125 MG/2 ML VIAL IV STA (22:37)
[2024-06-06] MEDS: MAGNESIUM SULFATE-D5W PMX 1 GM in DEXTROSE/WATER 1 100ML.BAG IVPB SCH (22:40)
[2024-06-06] MEDS ORDERED: DEXTROSE 50% SYRINGE 50 ML IVP PRN ×2 (23:29)
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
[2024-06-07] MEDS ORDERED: IPRATROPIUM-ALBUTEROL 3 ML NEB INHALATION SCH
[2024-06-07 00:50] LABS: Glucose,Whole Blood 334 mg/dL (70-110)
[2024-06-07] MEDS ORDERED: MECLIZINE 25 MG TAB PO PRN (01:07)
[2024-06-07] MEDS ORDERED: ONDANSETRON 4 MG/2 ML VIAL IVP PRN (01:09)
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
[2024-06-07 04:36] LABS: Basophils % (A) 0 %; Eosinophils % (A) 0 %; HGB 15.9 gm/dL (13.0-17.5); Lymphocytes # (A) 0.6 k/uL (1.0-4.8); Lymphocytes % (A) 7 %; MCH 30.1 pg (25.0-35.0); MCHC 35.3 g/dL (31.0-37.0); MCV 85.2 fL (80.0-100.0); Monocytes # (A) 0.1 k/uL (0-1.0); Monocytes % (A) 2 %; Neutrophils % (A) 91 %; Platelet Count 191 k/uL (150-450); RBC 5.28 m/uL (4.30-5.90); RDW 12.3 % (11.5-15.5); WBC 8.8 k/uL (3.8-10.6)
[2024-06-07 05:04] LABS: African American GFR (CKD) >90 (>60 ml/min/1.73 sqM); Anion Gap 12 mmol/L; Blood Urea Nitrogen 17 mg/dL (9-20); Calcium 9.6 mg/dL (8.4-10.2); Carbon Dioxide 23 mmol/L (22-30); Chloride 102 mmol/L (98-107); Glucose 322 mg/dL (74-99); Magnesium 1.9 mg/dL (1.6-2.3); Non-African American GFR(CKD) >90 (>60 ml/min/1.73 sqM); Potassium 4.2 mmol/L (3.5-5.1); Sodium 137 mmol/L (137-145)
--- NOTE | 2024-06-07 05:27 | XR ---
EXAMINATION TYPE: XR chest 2V DATE OF EXAM: 06/06/2024 6:23 PM CLINICAL INDICATION:Male, 59 years old with history of difficulty breathing; [facility] COMPARISON: 09/19/2021 TECHNIQUE: XR chest 2V. Frontal and lateral views of the chest.. FINDINGS: Heart and mediastinum are normal. Partially calcified aorta. Lungs are clear. No sizable pleural effusion or evidence of pneumothorax. Osseous structures are grossly intact. There are multiple sternal wires, some broken but not significantly displaced. IMPRESSION: No acute cardiopulmonary process. [facility], , 06/07/2024 5:25 AM
[2024-06-07 07:27] LABS: Glucose,Whole Blood 292 mg/dL (70-110)
--- NOTE | 2024-06-07 07:42 | US ---
EXAMINATION TYPE: US venous doppler duplex LE DATE OF EXAM: 06/07/2024 1:09 AM COMPARISON: NONE CLINICAL INDICATION: Male, 59 years old with history of elevated d-dimer; elevated d dimer. No hx of DVT TECHNIQUE: The lower extremity deep venous system is examined utilizing real time linear array sonog alva with graded compression, color doppler sonography, and spectral doppler. SIDE PERFORMED: Bilateral FINDINGS: VESSELS IMAGED: Common Femoral Vein Deep Femoral Vein Greater Saphenous Vein * Femoral Vein Popliteal Vein Small Saphenous Vein * Proximal Calf Veins (* superficial vessels) Right Leg: No evidence for DVT Left Leg: No evidence for DVT Grayscale, color doppler, spectral doppler imaging performed of the deep veins of the lower extremiti es. IMPRESSION: 1. No ultrasound evidence for deep venous thrombosis of either lower extremity. [facility], , 06/07/2024 7:40 AM
[2024-06-07] MEDS: IPRATROPIUM-ALBUTEROL 3 ML NEB INHALATION SCH (07:48)
[2024-06-07] MEDS: INSULIN ASPART (NovoLOG) 100 UNIT/ML VIAL SQ SCH ×2 (07:58→13:38)
[2024-06-07] MEDS: ENOXAPARIN 40 MG/0.4 ML SYRINGE SQ SCH (10:22)
[2024-06-07] MEDS: DAPAGLIFLOZIN PROPANEDIOL 10 MG TABLET PO SCH (10:24)
[2024-06-07 12:15] LABS: Glucose,Whole Blood 225 mg/dL (70-110)
[2024-06-07] MEDS ORDERED: ALBUTEROL HFA INHALER INHALATION PRN (12:55)
[2024-06-07] MEDS ORDERED: ALPRAZolam 0.25 MG TAB PO PRN (12:55)
--- NOTE | 2024-06-07 13:00 | P.PN ---
Subjective Progress Note Date: 06/07/24 Hospital course Patient is a 59-year-old male with COPD, [id number] diabetes mellitus, bipolar disorder, BPH, current smoker, and history of AV valve replacement came in for dizziness. Patient states that he feels as if the things around him are spinning. Patient states that it is worse when he moves. Patient was started on meclizine with no improvement. Patient seen this morning. He states that he still having a lot of dizziness. 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 Suspect BPPV Resume meclizine 25 mg p.o. 3 times daily as needed for dizziness Check MRI brain Cardiology consulted to rule out cardiac etiology Cardiology ordered echocardiogram Troponins negative x 3 If MRI negative then will recommend outpatient vestibular therapy. Physical therapy consult Diabetes mellitus Blood glucose ranges from 292-334 Continue sliding scale insulin Add 5 units of aspart with each meal Hemoglobin A1c 8.3 Hold metformin Continue with Farxiga 10 mg p.o. daily Hypomagnesemia Repleted in the ED Magnesium this morning 1.9 COPD Not in exacerbation Tobacco dependence Nicotine patch Bipolar disorder Continue with Lamictal 50 mg in the a.m. and 200 mg at bedtime BPH Continue with tamsulosin 0.4 mg p.o. at bedtime Insomnia Continue with temazepam 15 mg at bedtime Osteoarthritis Stable DVT prophylaxis: Lovenox 40 mg subcu daily Labs unremarkable so no need to trend Objective - Vital Signs Vital signs: Vital Signs Temp 97.6 F 06/06/24 17:18 Pulse 97 06/07/24 10:25 Resp 18 06/07/24 10:25 BP 100/67 06/07/24 10:25 Pulse Ox 97 06/07/24 10:25 FiO2 Intake & Output 06/06/24 06/07/24 06/07/24 18:59 06:59 18:59 Weight 76.657 kg - Labs CBC & Chem 7: 06/07/24 04:06 06/07/24 04:06 Labs: Abnormal Lab Results - Last 24 Hours (Table) 06/06/24 06/06/24 06/06/24 Range/Units 17:27 17:27 17:27 MCHC 37.1 H (31.0-37.0) g/dL Neutrophils # (1.3-7.7) k/uL Lymphocytes # (1.0-4.8) k/uL D-Dimer 0.88 H (<0.60) mg/L FEU Carbon Dioxide 19 L (22-30) mmol/L Glucose 148 H (74-99) mg/dL POC Glucose (mg/dL) (70-110) mg/dL Hemoglobin A1c (<=6.0) % Magnesium 1.3 L (1.6-2.3) mg/dL 06/07/24 06/07/24 06/07/24 Range/Units 00:48 04:06 04:06 MCHC (31.0-37.0) g/dL Neutrophils # 8.0 H (1.3-7.7) k/uL Lymphocytes # 0.6 L (1.0-4.8) k/uL D-Dimer (<0.60) mg/L FEU Carbon Dioxide (22-30) mmol/L Glucose 322 H (74-99) mg/dL POC Glucose (mg/dL) 334 H (70-110) mg/dL Hemoglobin A1c (<=6.0) % Magnesium (1.6-2.3) mg/dL 06/07/24 06/07/24 06/07/24 Range/Units 04:06 07:25 12:14 MCHC (31.0-37.0) g/dL Neutrophils # (1.3-7.7) k/uL Lymphocytes # (1.0-4.8) k/uL D-Dimer (<0.60) mg/L FEU Carbon Dioxide (22-30) mmol/L Glucose (74-99) mg/dL POC Glucose (mg/dL) 292 H 225 H (70-110) mg/dL Hemoglobin A1c 8.3 H (<=6.0) % Magnesium (1.6-2.3) mg/dL
--- NOTE | 2024-06-07 15:10 | CA ---
Transthoracic Echo Report Name: Magdy Johnson Age: 59 Gender: M : 1965 Exam Date: 06/07/2024 13:23 Exam Location: [place] [facility] Ht (in): 69 Wt (lb): 169 Ordering Physician: Ade Babcock Attending/Referring Phys: Patient Consumer Marketer Harriet Lantigua RDCS Procedure CPT: Indications: LVF, valve replacement Cardiac Hx: Technical Quality: Good Contrast 1: Total Dose (mL): Contrast 2: Total Dose (mL): MEASUREMENTS (Male / Female) Normal Values 2D ECHO LV Diastolic Diameter PLAX 4.8 cm 4.2 - 5.9 / 3.9 - 5.3 cm LV Systolic Diameter PLAX 3.2 cm IVS Diastolic Thickness 1.0 cm 0.6 - 1.0 / 0.6 - 0.9 cm LVPW Diastolic Thickness 1.2 cm 0.6 - 1.0 / 0.6 - 0.9 cm LV Relative Wall Thickness 0.5 LVOT Diameter 2.0 cm LA Volume 36.8 cm??? 18 - 58 / 22 - 52 cm??? LA Volume Index 19.0 cm???/m??? 16 - 28 cm???/m??? DOPPLER AV Peak Velocity 329.5 cm/s AV Peak Gradient 43.4 mmHg AV Mean Velocity 228.1 cm/s AV Mean Gradient 23.9 mmHg AV Velocity Time Integral 62.5 cm LVOT Peak Velocity 112.0 cm/s LVOT Peak Gradient 5.0 mmHg LVOT Velocity Time Integral 21.6 cm LVOT Stroke Volume 65.2 cm??? LVOT Stroke Volume Index 33.9 ml/m??? LVOT Cardiac Index 2723.4 cm???/min???m??? AV Area Cont Eq vti 1.0 cm??? AV Area Cont Eq pk 1.0 cm??? MV Area PHT 3.6 cm??? Mitral E Point Velocity 47.2 cm/s Mitral A Point Velocity 66.4 cm/s Mitral E to A Ratio 0.7 MV Deceleration Time 211.1 ms PV Peak Velocity 97.3 cm/s PV Peak Gradient 3.8 mmHg PI Peak Gradient 4.2 mmHg FINDINGS Left Ventricle Left ventricular ejection fraction is estimated at 60-65 %. Left ventricular cavity size normal. Left ventricular wall thickness normal. No obvious regional wall motion abnormalities. Right Ventricle Normal right ventricular size and function. Unable to estimate the right ventricular systolic pressure. Right Atrium Normal right atrial size. Left Atrium Normal left atrial size. Mitral Valve Structurally normal mitral valve. No mitral stenosis, regurgitation or prolapse. Aortic Valve Bioprosthetic aortic valve with stenosis with a peak velocity of 3.4 m/s, peak gradient 45 mmHg, mean gradient 25 mmHg, and estimated aortic valve area of 1.0 cm???. No paravalvular aortic regurgitation. No central aortic regurgitation. Tricuspid Valve Structurally normal tricuspid valve. No tricuspid stenosis. No tricuspid regurgitation. Pulmonic Valve Pulmonic valve not well visualized. No pulmonic stenosis. Trace pulmonic regurgitation. Pericardium No pericardial effusion. Aorta Aortic annulus normal. CONCLUSIONS Left ventricular ejection fraction 60-65% Normally functioning bioprosthetic aortic valve with peak velocity 3.4 m/s, mean gradient 25 mmHg. No aortic regurgitation No tricuspid regurgitation Previewed by: Dr. Maxx Campos DO (Electronically Signed) Final Date: 07 June 2024 15:09
[2024-06-07 20:01] LABS: Glucose,Whole Blood 119 mg/dL (70-110)
[2024-06-07] MEDS: lamoTRIgine 100 MG TAB PO SCH (20:26)
[2024-06-07] MEDS: lisinopriL 5 MG TAB PO SCH (20:26)
[2024-06-07] MEDS: TAMSULOSIN 0.4 MG CAP.ER.24H PO SCH (20:26)
[2024-06-07] MEDS: ATORVASTATIN 20 MG TAB PO SCH (20:26)
[2024-06-07] MEDS: TEMAZEPAM 15 MG CAP PO SCH (20:26)
[2024-06-07] MEDS: FLUoxetine HCL 10 MG CAP PO SCH (20:27)
[2024-06-07] MEDS: MELATONIN 5 MG TABLET PO PRN (20:39)
[2024-06-08 01:56] LABS: Glucose,Whole Blood 144 mg/dL (70-110)
[2024-06-08 05:10] LABS: Glucose,Whole Blood 143 mg/dL (70-110)
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
[2024-06-08] MEDS ORDERED: NON FORMULARY DRUG (Tiotropium Bromide [Spiriva Handihaler] 18 MCG Cap.W.Dev) INHALATION SCH (08:00)
[2024-06-08] MEDS: lamoTRIgine 100 MG TAB PO SCH (09:31)
[2024-06-08] MEDS: ASPIRIN 81 MG PO SCH (09:31)
--- NOTE | 2024-06-08 10:07 | P.DS ---
Providers Date of admission: 06/06/24 22:04 Attending physician: Jan Heredia MD Consults: 06/06/24 22:02 Consult Physician Urgent Consulting Provider: [facility] Consult Reason/Comments: acute chest pain, hx avr Do you want consulting provider notified?: Yes Primary care physician: Kiko Abbott [facility] Course: Discharge Diagnosis: Vertigo likely due to BPPV versus low blood pressure Diabetes mellitus Hypomagnesemia COPD Tobacco dependence Bipolar disorder BPH Insomnia Osteoarthritis Hospital Course: Patient is a 59-year-old male with COPD, [id number]-dnbzdqqdd diabetes mellitus, bipolar disorder, BPH, current smoker, and history of AV valve replacement came in for dizziness. Patient states that he feels as if the thing s around him are spinning. Patient states that it is worse when he moves. Patient was started on meclizine. The first day patient did not report any improvement. He was also seen by cardiology. His echocardiogram was unremarkable. MRI was ordered and I decided to keep the patient for another day. The following day patient reported that he was feeling much better. He states that he was able to walk around fine. So I canceled the MRI. I told patient to follow-up with ENT if his vertigo persists. I will discharge the patient on meclizine as needed. Patient blood pressure has also been on the low side so I discontinued his lisinopril as this could also be contributing to his dizziness. Patient seen and examined at bedside.[] Vital signs reviewed and stable. General examination - Alert and Oriented 3 in NAD Heart - + S1S2 no murmurs Lungs - Clear to auscultation Abdomen soft NT ND +ve BS Extremities - No edema SODDER - Moving all 4 extremities spontaneously Psych - Calm and cooperative A total of [33] minutes of time were spent preparing this complex discharge summary on 06/08/2024. Patient Condition at Discharge: Stable Plan - Discharge Summary New Discharge Prescriptions: New Meclizine [Antivert] 25 mg PO TID PRN 7 Days #21 tab PRN Reason: Vertigo Continue lamoTRIgine [LaMICtal] 200 mg PO HS Temazepam [Restoril] 15 - 30 mg PO HS Tamsulosin [Flomax] 0.4 mg PO HS Atorvastatin [Lipitor] 20 mg PO HS Albuterol Sulfate [Ventolin HFA] 2 puff INHALATION RT-Q6H PRN PRN Reason: Shortness Of Breath Empagliflozin [Jardiance] 25 mg PO DAILY Aspirin EC [Ecotrin Low Dose] 81 mg PO DAILY FLUoxetine HCL [PROzac] 10 mg PO HS Tiotropium [place] [Spiriva Handihaler] 1 puff INHALATION RT-DAILY ALPRAZolam [Xanax] 0.25 mg PO BID PRN PRN Reason: Anxiety ARIPiprazole [Abilify] 20 mg PO DAILY lamoTRIgine [LaMICtal] 50 mg PO DAILY metFORMIN HCL 1,000 mg PO BID-W/MEALS Discontinued lisinopriL [Zestril] 5 mg PO HS Discharge Medication List lamoTRIgine [LaMICtal] 200 mg PO HS 07/08/16 [History] Atorvastatin [Lipitor] 20 mg PO HS 10/24/19 [History] Tamsulosin [Flomax] 0.4 mg PO HS 10/24/19 [History] Temazepam [Restoril] 15 - 30 mg PO HS 10/24/19 [History] Albuterol Sulfate [Ventolin HFA] 2 puff INHALATION RT-Q6H PRN 07/16/20 [History] Empagliflozin [Jardiance] 25 mg PO DAILY 07/16/20 [History] ALPRAZolam [Xanax] 0.25 mg PO BID PRN 06/07/24 [History] ARIPiprazole [Abilify] 20 mg PO DAILY 06/07/24 [History] Aspirin EC [Ecotrin Low Dose] 81 mg PO DAILY 06/07/24 [History] FLUoxetine HCL [PROzac] 10 mg PO HS 06/07/24 [History] Tiotropium [place] [Spiriva Handihaler] 1 puff INHALATION RT-DAILY 06/07/24 [History] lamoTRIgine [LaMICtal] 50 mg PO DAILY 06/07/24 [History] metFORMIN HCL 1,000 mg PO BID-W/MEALS 06/07/24 [History] Meclizine [Antivert] 25 mg PO TID PRN 7 Days #21 tab 06/08/24 [Rx] Follow up Appointment(s)/Referral(s): Kiko Cuevas III, MD [Primary Care Provider] - 1-2 days Kike Walton MD [STAFF PHYSICIAN] - 1 Week Discharge Disposition: HOME SELF-CARE
--- NOTE | 2024-06-08 10:07 | P.PN ---
Subjective Progress Note Date: 06/08/24 Reason for Consult (text): Acute chest pain, history of AVR History of present illness: This is a 59-year-old male patient of Dr. Morales with past medical history of diabetes mellitus type 2, hypertension, hyperlipidemia, tobacco use and dependence, COPD, moderate aortic stenosis status post AVR at [facility], bipolar disorder. We have been asked to evaluate the patient for acute chest pain and history of AVR. Patient complains of feeling dizzy for the last few days mostly when he is walking or standing. He denies having any chest pain or pressure. He just feels that he is off balance. No fever or chills no cough. He denies any new medications. He states he has never had this before. Patient does not check his blood pressure at home. Blood pressure 111/80, heart rate in the 80s, pulse ox 98% on room air. Patient is a smoker of half a pack a day, no alcohol use, no illicit drug use, he does use marijuana occasionally. Patient i s seen today in the emergency center waiting for bed on the observation unit. EKG: Sinus rhythm with nonspecific T wave abnormality Chest x-ray: No acute process CTA of the chest negative for pulmonary embolism Duplex study bilateral lower extremities negative for DVT Laboratory studies: CBC is unremarkable. D-dimer 0.88, electrolytes and renal function normal. Troponin negative x 3. Magnesium 1.9. Home cardiac medications: Aspirin 81 mg daily, atorvastatin 20 mg at bedtime, Jardiance 25 mg daily, lisinopril 5 mg at bedtime. Dobutamine stress echocardiogram performed 08/30/2020 revealed negative stress test by EKG criteria, negative dobutamine stress echo. Echocardiogram performed 07/17/2020 revealed EF 60 to 65%, moderate concentric left ventricular hypertrophy, lipomatous hypertrophy of the atrial septum, moderate to severe aortic valve sclerosis, moderate aortic stenosis, peak mean gradient 43.02/26.21 mmHg, trace pulmonic regurgitation. Cardiac catheterization performed 11/07/[address] Boo revealed normal coronary angiogram, mildly elevated LVEDP. 06/08 Patient is seen and examined. Blood pressure 95/61, heart rate in the 60s to 80s, pulse ox 99% on room air. Orthostatic vital signs performed yesterday afternoon are negative. Telemetry is sinus rhythm. Echocardiogram reveals EF of 60 to 65%, normally functioning bioprosthetic aortic valve with peak velocity 3.4M/6, mean gradient 25 mmHg, no aortic regurgitation, no tricuspid regurgitation. Results of testing including orthostatic vital signs and echocardiogram reviewed with the patient. Patient denies chest pain. He is still having dizziness with standing but not as severe. Physical examination: Gen: This is a 59-year-old male in no acute distress VS: reviewed HEENT: Head is atraumatic, normocephalic. Pupils equal, round. Sclerae is anicteric. NECK: Supple. No JVD. LUNGS: Clear to auscultation. No wheezes or rhonchi. No intercostal retractions. HEART: Regular rate and rhythm. 2/6 systolic ejection murmur. ABDOMEN: Soft No tenderness. EXTREMITIES: No pedal edema. No calf tenderness. NEUROLOGICAL: Patient is awake, alert and oriented x3. Assessment: Dizziness rule out cardiac etiology Atypical chest pain, acute coronary syndrome ruled out Hypertension Hyperlipidemia COPD Moderate aortic stenosis status post AV replacement 03/2021 Diabetes mellitus type 2 Tobacco use and dependence Plan: Continue patient's home cardiac medications but decrease Lisinopril to 2.5 mg until follow up with Dr. Morales No further cardiac work up at this time Patient is cleared for discharge and may follow up with Dr. Morales in one to two weeks. Nurse practitioner note has been reviewed, I agree with documented findings and plan of care. Patient was seen and examined. Objective - Vital Signs Vital signs: Vital Signs Temp 97.6 F 06/08/24 07:00 Pulse 90 06/08/24 08:23 Resp 17 06/08/24 07:00 BP 95/61 06/08/24 07:00 Pulse Ox 99 06/08/24 07:00 FiO2 Intake & Output 06/07/24 06/08/24 06/08/24 18:59 06:59 18:59 Weight 76.657 kg Other: # Voids 2 - Labs CBC & Chem 7: 06/07/24 04:06 06/07/24 04:06 Labs: Abnormal Lab Results - Last 24 Hours (Table) 06/07/24 06/07/24 06/07/24 Range/Units 04:06 12:14 17:08 POC Glucose (mg/dL) 225 H 144 H (70-110) mg/dL Hemoglobin A1c 8.3 H (<=6.0) % 06/07/24 06/08/24 Range/Units 19:58 05:08 POC Glucose (mg/dL) 119 H 143 H (70-110) mg/dL Hemoglobin A1c (<=6.0) %
[2024-06-08 14:08] VITALS: BP 95/61; PULSE 90; RESP 17; TEMP 97.6
== END 2024-06-08 11:37 | disposition home or self-care (01) ==
LOC: EC 17:08 → 6NMEDSUR 22:04
PROVIDERS: ADMIT Internal Medicine; ATTEND Internal Medicine
DX: R42 Dizziness and giddiness (principal); R07.89 Other chest pain; R06.02 Shortness of breath; R79.1 Abnormal coagulation profile; T38.3X1A Poisoning by insulin and oral hypoglycemic [antidiabetic] drugs, accidental (unintentional), initial encounter; E83.42 Hypomagnesemia; H93.13 Tinnitus, bilateral; J44.9 Chronic obstructive pulmonary disease, unspecified; E11.9 Type 2 diabetes mellitus without complications; I10 Essential (primary) hypertension; G47.00 Insomnia, unspecified; N40.0 Benign prostatic hyperplasia without lower urinary tract symptoms; E78.5 Hyperlipidemia, unspecified; F31.9 Bipolar disorder, unspecified; M19.90 Unspecified osteoarthritis, unspecified site; F17.210 Nicotine dependence, cigarettes, uncomplicated; I35.0 Nonrheumatic aortic (valve) stenosis; Z79.84 Long term (current) use of oral hypoglycemic drugs; Z79.82 Long term (current) use of aspirin; Z79.899 Other long term (current) drug therapy; Z87.01 Personal history of pneumonia (recurrent); Z79.85 Long-term (current) use of injectable non-insulin antidiabetic drugs; Z95.1 Presence of aortocoronary bypass graft; Z95.2 Presence of prosthetic heart valve
CPT/HCPCS: 96372 ×2; 96365; 96366; 96375; 99285; 36415; 94640 ×3; 93005; 93306; 97162; 85379; 80053; 80048; 83605; 83735 ×2; 84484 ×2; 85025 ×2; 85610; 85730; 83036; 71046; 93970; 71275; G0378 ×3; J1650 ×2; J3475 ×2; Q9967; J2919

== ENCOUNTER 2024-09-10 08:32 | Emergency (ER) | payer MEDICARE ==
[2024-09-10 08:36] VITALS: BP 138/82; PULSE 96; RESP 16; TEMP 98.4
[2024-09-10] MEDS: FLUORESCEIN STRIPS 1 MG STRIP RIGHT EYE ONE (08:46)
[2024-09-10] MEDS: PROPARACAINE 0.5% OPHTH DROPS 15 ML BTL RIGHT EYE SCH (08:46)
[2024-09-10] MEDS: acetaZOLAMIDE 250 MG TAB PO STA (09:51)
[2024-09-10] MEDS: TIMOLOL 0.25% OPHTH DROPS 5 ML BTL RIGHT EYE STA (09:52)
[2024-09-10] MEDS: BRIMONIDINE TARTRATE 0.2% DROPS 5 ML BTL RIGHT EYE STA (09:52)
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
== END 2024-09-10 09:54 | disposition left against medical advice (07) ==
LOC: EC 08:32
DX: H40.211 Acute angle-closure glaucoma, right eye (principal); E11.9 Type 2 diabetes mellitus without complications; F17.200 Nicotine dependence, unspecified, uncomplicated; Z53.29 Procedure and treatment not carried out because of patient's decision for other reasons
CPT/HCPCS: 99283; 99406

== ENCOUNTER 2025-03-12 09:09 | Emergency (ER) | payer MEDICARE ==
[2025-03-12 09:19] VITALS: RESP 18
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
[2025-03-12] MEDS: IBUPROFEN 600 MG TAB PO STA (09:40)
[2025-03-12] MEDS: HYDROcodone/APAP 7.5-325MG 1 EACH TAB PO ONE (09:40)
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
[2025-03-12 11:34] VITALS: BP 130/86; PULSE 80; TEMP 98
== END 2025-03-12 14:04 | disposition home or self-care (01) ==
LOC: EC 09:09
DX: S82.401A Unspecified fracture of shaft of right fibula, initial encounter for closed fracture (principal); F17.200 Nicotine dependence, unspecified, uncomplicated; V29.99XA Rider (driver) (passenger) of other motorcycle injured in unspecified traffic accident, initial encounter
CPT/HCPCS: 29515; 99283